=== PATIENT | male | born 1970 | race Caucasian/White ===

== ENCOUNTER 2016-06-07 10:28 | Inpatient (IN) | payer OTHER ==
[2016-06-07] VITALS (9 sets, daily range): BP systolic 108–155; BP diastolic 80–98
[~2016-06-07] VITALS: Ht 177.8 cm; Wt 81.6 kg
[~2016-06-07 10:28] MED LIST: ALBUTEROL0.09 MG/A1 INH; ATIVAN0.5 MG PO; ATIVAN1 MG PO; BACTRIM DS 8001 TAB PO; CARAFATE PO; CHLORDIAZEPOXID25 M3 PO; CILOXAN0.3% OS; FOLIC ACID 1 MG PO; FOLIC ACID1 M1 PO; KEFLEX500 MG PO; LORAZEPAM1 MG PO; MULTIVITAMIN PO; MULTIVITAMIN1 TAB PO; NEXIUM 40MG40 MG PO; NEXIUM20 M1 PO; ONE DAILY MULT1 EAC2 PO; THIAMINE HCL100 M1 PO; TRAZODONE150 MG PO; TRAZODONE50 MG PO; VITAMIN B-1100 MG PO; VITAMIN B1100 MG PO; XYLOCAINE VISCO20 ML PO; ZOFRAN 4 MG TABL4 MG PO; [UNRECOGNIZED DRUG - OTHER] PO
--- NOTE | 2016-06-07 10:47 | NUR ---
PER PT WANTS DETOX, LAST DRINK THIS AM BUT ONLY DRANK ALITTLE USUSALLY DRINK 2 PINTS. HERE AND WAS SENT HOME BECAUSE I DONT DRINK ENOUGH, ALSO DID DOPE LAST NIGHT REPORTS WITHDRAWAL SEIZURES.
--- NOTE | 2016-06-07 11:00 | NUR ---
URINE TRIO SENT BY THIS NUTRITIONIST PUBLIC [facility].
[2016-06-07 11:09] LABS: ABSOLUTE BASOPHIL COUNT 0.1 /CUMM (0.0-0.2); ABSOLUTE EOSINOPHIL COUNT 0.1 /CUMM (0.0-0.7); ABSOLUTE GRANULOCYTE CT 4.9 /CUMM (1.4-6.5); ABSOLUTE LYMPH COUNT 1.1 /CUMM (1.2-3.4); ABSOLUTE MONOCYTE COUNT 1.2 /CUMM (0.10-0.60); BASOPHIL % 0.7 % (0.0-2.0); EOSINOPHIL % 1.9 % (0-5); GRANULOCYTE % 66.2 % (42.2-75.2); HEMATOCRIT 43.2 % (42-52); MEAN CORPUSCULAR HGB 29.5 PG (27.0-31.0); MEAN CORPUSCULAR HGB CONC 33.4 G/DL (33.0-37.0); MEAN CORPUSCULAR VOLUME 88.4 FL (80.0-94.0); PLATELET COUNT 314 /CUMM (130-400); RED BLOOD CELL CT 4.89 /CUMM (4.70-6.10); WHITE BLOOD CELL COUNT 7.4 /CUMM (4.8-10.8)
--- NOTE | 2016-06-07 11:24 | NUR ---
SST HEMOLYZED PER LAB
--- NOTE | 2016-06-07 11:45 | NUR ---
SST REDRAWN AND SENT TO LAB.
--- NOTE | 2016-06-07 11:51 | NUR ---
PT REPORTS HISTORY OF W/D SEIZURES, UNSURE OF LAST ONE. SOME SHAKING NOTED TO RIGHT ARM. "LAST TIME I WAS HERE, THE DOCTOR TOLD ME THAT I COULDN'T STAY BECAUSE I DIDN'T DRINK ENOUGH. I NEED TO STAY FOR AT LEAST TWO DAYS BECAUSE I'M SCARED I'M GOING TO HAVE A SEIZURE."
--- NOTE | 2016-06-07 12:46 | NUR ---
PT SITTING UP ON STRETCHER , NOTED WITH VISIBLE TREMORS, PT STATES THAT HE HAS A HISTORY OF SEIZURES AND AT THIS TIME HE DOES NOT FEEL TO BAD, DRANK 4-5 BEERS THIS AM , BUT STATES THAT HE USUALLY DRINKS WHISKEY WITH THE BEER.CICLARY 6
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
--- NOTE | 2016-06-07 15:25 | CT SCAN REPORT ---
EXAMINATION: CT ABDOMEN AND PELVIS WITH CONTRAST CLINICAL INFORMATION: ETOH induced pancreatitis. COMPARISON: CT abdomen 12/17/2010. TECHNIQUE: Multidetector volumetric imaging was performed of the abdomen and pelvis before and after the IV administration of 95 mL of Optiray 320 intravenous contrast. Sagittal and coronal reformatted images were obtained on the technologist's workstation. DLP: 242 mGy-cm. FINDINGS: LUNG BASES: The visualized lung bases are unremarkable. Moderate hiatal hernia. LIVER, GALLBLADDER, AND BILIARY TREE: Decreased hepatic radiodensity consistent with hepatic steatosis. Top normal to mildly prominent hepatic size. No focal hepatic lesion. No biliary ductal dilatation. The gallbladder is unremarkable. PANCREAS: The pancreas enhances homogeneously. No significant peripancreatic stranding or fluid collection. No pancreatic ductal dilatation. SPLEEN: Unremarkable. ADRENAL GLANDS: Unremarkable. KIDNEYS AND URETERS: Bilateral nephrograms are symmetric without hydronephrosis. There is a subcentimeter hypodense lesion in the midpole of the right kidney which is too small to characterize on CT scan, statistically most likely representing a cyst. No suspicious renal mass. No renal or ureteral calculi demonstrated. BLADDER: Partially distended without focal abnormality. GASTROINTESTINAL TRACT: Bowel gas pattern is nonobstructive. No evidence of acute bowel inflammation. The appendix is normal. ABDOMINAL WALL: No significant hernia is appreciated. LYMPH NODES: No adenopathy demonstrated. VASCULAR: Unremarkable. PELVIC VISCERA: Unremarkable. OSSEOUS STRUCTURES: No acute osseous abnormalities. Multiple lower lumbar disc bulges. IMPRESSION: 1. No significant CT stigmata of pancreatitis demonstrated. 2. Hepatic steatosis. 3. Moderate hiatal hernia. 4. No cholelithiasis or choledocholithiasis. No biliary ductal dilatation.
--- NOTE | 2016-06-07 17:14 | NUR ---
HOUSE STAFF AT BEDSIDE FOR EVAL.
--- NOTE | 2016-06-07 17:44 | NUR ---
PT HAS BED ASSIGNMENT 230-2
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
--- NOTE | 2016-06-07 17:58 | NUR ---
REPORT GIVEN TO TRAVIS QUINONES.
--- NOTE | 2016-06-07 18:23 | NUR ---
PT MEDICATED WITH MULTIVITAMIN, FOLIC ACID AND THIAMINE AND LOVENOX SHOT. PT STABLE FOR TRANSPORT.
--- NOTE | 2016-06-07 18:30 | NUR ---
ARRIVED TO FLOOR VIA WC FROM ED. A & O X 3. TACHYCARDIC BUT OTHER VSS. C/O SWEATING AND MILD TREMOR, CIWA SCORE 5. ORIENTED TO CALL SYSTEM. BELONGINGS BAG FOR SAFE SENT WITH PATIENT, NURSING NET MAKER PAGED TO TAKE BELONGINGS TO SAFE. BAGS X 2 OF CLOTHING ALSO SENT WITH PATIENT. FALL SCORE 4 AT THIS TIME AND PT STEADY ON FEET, NO ALARM PLACED AT THIS TIME, WILL MONITOR.
--- NOTE | 2016-06-07 20:05 | Admission Certification ---
Admission Certification Certification Statement - As attending physician, I certify that at the time of - admission, based on clinical presentation, severity of - symptoms, need for further diagnostic testing and - therapeutic interventions, and risk of adverse outcomes - without in-hospital treatment, in my clinical assessment, - this patient requires an acute hospital stay for a minimum - of two nights or longer. I have also considered psychsocial - factors such as support system, advanced age, financial - issues, cognitive issues, and failed out-patient treatments, - past re-admission history, safety of patient, and lack of - compliance as applicable. Specific rationale supporting this admission is: etoh withdrawl and intoxication with impending delerium tremens.
--- NOTE | 2016-06-07 20:08 | PN- Att Addend ---
Attending MD Review Statement Attending Statement Attending MD Statement: examined this patient, discuss w/resident/PA/SENIOR FACILITIES MANAGER, agreed w/resident/PA/SENIOR FACILITIES MANAGER, reviewed EMR data (avail), discussed w/nursing Attending Assessment/Plan: Pt seen and examined at bedside. Admitted with etoh intoxication and active withdrawls. ETOH level high and utox positive for marijuana. Pt dirnks 2 pints of whiskey a day and 12 bottles of beer a day. Will check his LFTs and Ammonia level. Also has h/o hep c. monitor on ciwa and give iv fluids and banana bag
[2016-06-08] VITALS (9 sets, daily range): BP systolic 96–125; BP diastolic 70–80
--- NOTE | 2016-06-08 08:58 | PN- Housestaff ---
MARCO JACOBO 06/08/16 0852: Subjective Follow-up For: Alcohol detox Subjective: Seen and examined patient, offers no complaints. Denies fever, chills, palpitations, tremors, anxiety, nausea, vomiting, abdominal pain. Review of Systems Constitutional: Denies: chills, diaphoresis, fever, malaise, weakness, unexplained weight loss. Cardiovascular: Denies: chest pain, edema, orthopena, palpitations, peripheral edema, syncope. Respiratory: Denies: cough, hemoptysis, orthopnea, short of breath, sputum production, stridor, wheezing. Gastrointestinal: Denies: abdominal pain, bloating, constipation, diarrhea, distention, bowel incontinence, melena, nausea, bloody stool, changes in stool, vomiting, steatorrhea. Objective Last 24 Hrs of Vital Signs/I&O Vital Signs Date Time Temp Pulse Resp B/P Pulse O2 O2 Flow FiO2 Ox Delivery Rate 06/08 0728 97.8 95 16 95 Room Air 06/08 0228 97.8 95 16 95 Room Air 06/08 0200 97.8 95 20 9670 06/08 0000 96 Room Air 06/07 2226 97.9 81 20 118/80 96 Room Air 06/07 2200 97.9 81 20 118/80 06/07 1840 99.7 112 18 108/82 94 Room Air 06/07 1830 Room Air 06/07 1830 99.7 112 18 108/82 06/07 1745 97.1 109 20 134/92 06/07 1745 97.1 109 20 134/92 95 Room Air Room Air 06/07 1645 108 06/07 1645 98.8 108 18 126/87 06/07 1633 98.8 122 18 126/87 98 06/07 1445 97.9 96 20 155/96 06/07 1345 96.0 107 20 147/97 06/07 1345 96.0 107 20 147/97 96 Room Air Room Air 06/07 1245 96.9 112 06 144/98 06/07 1244 96.9 112 16 144/98 98 Room Air 06/07 1150 Room Air Room Air 06/07 1150 120/90 06/07 1048 97.2 109 22 165/100 96 Room Air Intake & Output 06/08 1600 01/16 0800 06/08 0000 Intake Total 1100 150 Output Total 525 0 Balance 575 150 Intake, IV 1000 Intake, Oral 100 150 Output, Urine 525 0 Patient 180 lb Weight Physical Exam General Appearance: Alert, Oriented X3, Cooperative, No Acute Distress Cardiovascular: Regular Rate, Normal S1, Normal S2 Lungs: bilateral wheezing Abdomen: Normal Bowel Sounds, Soft, No Tenderness Current Medications: Current Medications Sig/Trinity Start time Last Medication Dose Route Stop Time Status Admin Cyanocobalamin/ 1 BAG ONCE ONE 06/07 2359 DC 06/08 Thiamine/Pyridoxine IV 06/08 0758 0001 Sodium Chloride 1,000 ML Enoxaparin Sodium 0 .STK-MED ONE 06/07 1809 DC SC Enoxaparin Sodium 40 MG DAILY 06/07 1746 06/08 SC 0845 Folic Acid 0 .STK-MED ONE 06/07 1809 DC PO Folic Acid 1 MG DAILY 06/07 1748 AC 06/08 PO 0844 Lorazepam 2 MG Q6 06/07 1815 CAN IV Lorazepam 2 MG Q6 06/07 1810 AC 06/08 PO 0529 Lorazepam 0 Q1P PRN 06/07 1800 AC IV Lorazepam 0 .STK-MED ONE 06/07 1737 DC .ROUTE Lorazepam 2 MG Q2P PRN 06/07 1730 DC IV Lorazepam 1 MG Q2P PRN 06/07 1730 DC 06/07 IV 1755 Lorazepam 0 .STK-MED ONE 06/07 1506 DC .ROUTE Lorazepam 2 MG ONE ONE 06/07 1500 DC 06/07 IV 06/07 1501 1522 Morphine Sulfate 2 MG Q8P PRN 06/07 1800 AC IV Multivitamins 0 .STK-MED ONE 06/07 1809 DC PO Multivitamins 1 TAB DAILY 06/07 1749 06/08 PO 0845 Omeprazole 20 MG DAILY AC 06/08 0700 AC 06/08 PO 0529 Oxycodone HCl 5 MG Q8P PRN 06/07 1800 AC PO Patient Medication 1 UNIT ONE NR 06/07 181 MT Teaching ED 06/07 1830 Patient Medication 1 UNIT ONE NR 06/07 1815 MT Teaching ED 06/07 1830 Sodium Chloride 1,000 ML .[id number] 06/07 1745 AC 06/07 IV 1931 Thiamine HCl 0 .STK-MED ONE 06/07 1809 DC PO Thiamine HCl 100 MG DAILY 06/07 1749 AC 06/08 PO 0844 Last 24 Hrs of Lab/Asul Results Last 24 Hrs of Labs/Mics: Laboratory Tests 06/07/16 2350: Ammonia 14 06/07/16 1140: Anion Gap 16, Estimated GFR > 60, BUN/Creatinine Ratio 7.5, Glucose 88, Calcium 10.2, Total Bilirubin 0.7, Direct Bilirubin 0.5 H, AST 82 H, ALT 46, Alkaline Phosphatase 107, Total Protein 8.4 H, Albumin 4.8, Amylase 100, Lipase 645 H, Serum Alcohol 53.0 06/07/16 1057: Urine Opiates Screen 1380.00, Methadone Screen < 40, Barbiturate Screen < 60, Ur Phencyclidine Scrn < 6.00, Amphetamines Screen < 100, U Benzodiazepines Scrn < 85, Urine Cocaine Screen < 50, Urine Cannabis Screen > 80.00 H 06/07/16 1050: CBC w Diff MAN DIFF ORDERED, RBC 4.89, MCV 88.4, MCH 29.5, RDW 17.0 H, MPV 8.0, Gran % 66.2, Lymphocytes % 14.9 L, Monocytes % 16.3 H, Eosinophils % 1.9, Basophils % 0.7, Absolute Granulocytes 4.9, Absolute Lymphocytes 1.1 L, Absolute Monocytes 1.2 H, Absolute Eosinophils 0.1, Absolute Basophils 0.1, Platelet Estimate VERIFIED BY SMEAR, Anisocytosis 1+, Stomatocytes 1+, PUBS MCHC 33.4 Assessment/Plan Assessment: 46-year-old gentleman current smoker with past medical history significant for multiple admissions for alcohol withdrawal associated with seizures and no history of intubation, polysubstance abuse, history of hepatitis C, asthma, anxiety, depression current admission for alcohol withdrawal. No overnight issues. 1. ALCOHOL WITHDRAWAL Assessment/Plan Afebrile, no tachycardia, blood pressure running 90 over 70s will continue monitor Continue Ativan per CIWA protocol, CIWA scores 0-6, over a period of 24 hours received 6 mg by mouth Ativan and 3 mg IV Ativan. Continue start MVI/thiamine and banana bag monitor for seizures 2. GERD (gastroesophageal reflux disease) Assessment/Plan continue Prilosec 20mg Avoid NSAIDs 3. Asthma Assessment/Plan TRC/nebs Saturating 95% on room air 4. Polysubstance (excluding opioids) dependence Assessment/Plan denies IVDU 5. DVT prophylaxis Assessment/Plan sc lovenox 6. Full code status Problem List: 1. ALCOHOL WITHDRAWAL 2. GERD (gastroesophageal reflux disease) 3. Asthma Pain Ratin Pain Location: Not applicable Pain Goal: Pain 4 or less Pain Plan: Current regimen Tomorrow's Labs & Rationales: none required FEDERICO WORKMAN MD 06/08/16 1210: Attending MD Review Statement Attending Statement Attending MD Statement: examined this patient, discuss w/resident/PA/RN GYN, agreed w/resident/PA/RN GYN, reviewed EMR data (avail) Attending Assessment/Plan: 46M EtOH abuse with recurrent episodes of withdrawal and history of withdrawal seizures. Calm today, CIWA <5. Patient has a history of worsening on day 2 of admission. Will continue current Ativan dose, PRN per CIWA, may taper tomorrow if improves, continue vitamin supplementation and DVT PPx FARAZ ROTH 06/09/16 1325: Attending MD Review Statement Attending Statement Attending Assessment/Plan: I was not the attending for this patient on 06/08/16. Pt was seen by Dr Workman, his note is as above Dr Faraz Roth
[2016-06-09] VITALS (12 sets, daily range): BP systolic 104–130; BP diastolic 70–80
--- NOTE | 2016-06-09 07:28 | PN- Housestaff ---
ADIA BERRIOS MD 06/09/16 0727: Subjective Follow-up For: EtOH detox Subjective: Patient seen and examined. He is seen lying flat in bed resting comfortably. He appears to be in no acute distress. He reports sleeping well last night and at this time has no complaints. Otherwise he denies any headache, fever, chills, chest pain, palpitations, shortness of breath, nausea, vomiting, diarrhea. No overnight events reported. Review of Systems Constitutional: Reports: see HPI. Objective Last 24 Hrs of Vital Signs/I&O Vital Signs Date Time Temp Pulse Resp B/P Pulse O2 O2 Flow FiO2 Ox Delivery Rate 06/09 1434 98.2 98 20 125/80 98 06/09 0916 97 Room Air 06/09 0800 97.6 88 16 104/76 06/09 0800 96 Room Air 06/09 0712 97.6 88 16 10476 96 Room Air 06/09 0400 97.5 64 16 108/76 06/09 0205 97.5 64 16 108/76 96 Room Air 06/09 0200 97.5 64 16 108/76 06/09 0000 97.9 70 20 120/80 06/09 0000 97 Room Air 06/08 2027 97.9 70 20 120/80 97 Room Air 06/08 2000 97.9 70 20 120/80 06/08 1928 94 Room Air Room Air Intake & Output 06/09 1600 06/09 0800 06/09 0000 Intake Total 975 506 5764 Output Total 1400 1100 Balance 900 -675 470 Intake, IV 300 600 600 Intake, Oral 600 125 970 Output, Urine 1400 1100 Physical Exam General Appearance: Alert, Oriented X3, Cooperative, No Acute Distress Other Physical Findings: General -well-developed, well-nourished middle-aged man in no acute distress HEENT - NCAT, PERRL, EOMI, anicteric sclera Cardio - S1, S2 w/o murmurs/gallops/rubs Resp - CTA bilaterally w/o wheezing/rhochi/crackles GI - soft, nontender, nondistended, bowel sounds present Neuro - Awake and alert, CN II - XII grossly intact Extremities - no edema, pulses intact Current Medications: Current Medications Sig/Trinity Start time Last Medication Dose Route Stop Time Status Admin Albuterol Sulfate 3 ML BID 06/08 2199 AC 06/09 INH 0914 Enoxaparin Sodium 40 MG DAILY 06/07 1746 AC 06/09 SC 0922 Folic Acid 1 MG DAILY 06/07 1748 AC 06/09 PO 0922 Lorazepam 1 MG Q6 06/09 1200 AC 06/09 PO 1151 Lorazepam 1.5 MG Q6 06/08 1200 DC 06/09 PO 0546 Lorazepam 0 Q1P PRN 06/07 1800 AC IV Morphine Sulfate 2 MG Q8P PRN 06/07 1800 AC IV Multivitamins 1 TAB DAILY 06/07 1749 AC 06/09 PO 0922 Nicotine 21 MG DAILY 06/08 1627 AC 06/09 TOP 0922 Omeprazole 20 MG DAILY AC 06/08 0700 AC 06/09 PO 0546 Oxycodone HCl 5 MG Q8P PRN 06/07 1800 AC PO Sodium Chloride 1,000 ML .[id number] 06/07 1745 DC 06/08 IV 2320 Thiamine HCl 100 MG DAILY 06/07 1749 AC 06/09 PO 0922 Trazodone HCl 50 MG ONCE ONE 06/08 2330 DC 06/08 PO 06/08 2331 2339 Assessment/Plan Assessment: Patient continues to feel well and has no complaints. He is tolerating his Ativan taper well and has scored consistently low on his CIWA protocol. He has not required any supplemental Ativan thus far. His Ativan taper will continue to be tapered with an anticipated discharge date to home without any further taper this coming . EtOH abuse/dependence: History of EtOH abuse/dependence and alcohol withdrawal seizures presented requesting alcohol detox. -Seizure precautions -CIWA protocol and Ativan when necessary -Ativan taper -Multivitamin/thiamine/folate -Psych consult GERD-stable, continue omeprazole 20 mg by mouth daily Every day smoker-nicotine 21 mg patch daily History of asthma-stable, continue albuterol inhalation twice a day Pain plan: -Oxycodone 5 mg by mouth every 8 hours as needed for pain 4-6 -Morphine 2 mg IV every 8 hours as needed for pain 7-10 Diet-regular diet DVT prophylaxis-Lovenox CODE STATUS-full code Problem List: 1. ALCOHOL WITHDRAWAL Pain Ratin Pain Location: None Pain Goal: Remain pain free Pain Plan: As noted in plan Tomorrow's Labs & Rationales: None FEDERICO WORKMAN MD 06/09/16 1103: Attending MD Review Statement Attending Statement Attending MD Statement: examined this patient, discuss w/resident/PA/SOLAR SALES ENERGY ADVISOR, agreed w/resident/PA/SOLAR SALES ENERGY ADVISOR, reviewed EMR data (avail) Attending Assessment/Plan: 46M EtOH abuse with recurrent episodes of withdrawal and history of withdrawal seizures. Calm today, CIWA <5. May taper Ativan to 1mg q6h with plans to taper to 1mg q12h tomorrow if CIWA scores remain controlled, PRN per CIWA, continue vitamin supplementation
--- NOTE | 2016-06-09 12:48 | NUR ---
Referral received yesterday via electronic border patrol agent. This patient is a 46 year old man, admitted to the hospital on 06/07/16 seeking a voluntary detox. Gonzalo is well known to this communications writer from multiple previous admissions, which have frequently resulted in either AMA discharges or reluctance/rfusal to allow assistance with formulation of an aftercare plan. About 11/2 years ago, patient did got to residential rehab via his [employer] benefit, but struggled then with sustained sobriety. Today I met with Gonzalo. He is on anativan taper with projected discharge tomorrow and all gonzalo will consider is discharge home with AA.
--- NOTE | 2016-06-09 13:49 | NUR ---
ALL VAULUABLES RETRIEVED FROM [facility]E PER PT REQUEST, PT SIGNED FOR CORRECT COUNT, PHONE, WALLET, ETC, LABORATORY CUREMAN AND CIGARETTS NOT RETURNED TO PT, PT AWARE HE WILL GET THEM BACK AT DISCHARGE
--- NOTE | 2016-06-09 15:17 | Cons- Psychiatry ---
Psychiatric Consult Date of Consult: 06/09/16 Reason for Consult: "Hx anxiety/depression, etoh dep, discharge recs." History of Present Illness: HPI: 46-year-old male known to this service presents for alcohol detox on 06/07/16 admitted with severe epigastric pain. Patient has a long history of alcohol use disorder with several previous detoxes. At present consumes 2 quarts of whiskey plus "a couple beers" daily. PMH: Please see the H&P for a complete listing hepatitis C, asthma Past Psych History: -Outpatient Denies -Inpatient Denies Family Psych History: Unobtained Substance History History of polysubstance abuse dating back to age 14. Cocaine, marijuana, and alcohol are primary substances. -Treatment 2 previous [facility] Dual dx IOP admits in 2013 and 2014 Multiple rehab stays including [facility], [facility], and [facility] - first at age 16, after which he maintained 3 years of sobriety Multiple inpatient detoxes Family Substance History: Father EtOH Social: . Recent intact family, mother and stepfather, with 2 brothers. 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 Has GED is currently unemployed. Abuse/Trauma: Denies Current Home Psychotropic Medications: Most recently prescribed in October by Michelle LO Lexapro 10 mg daily Trazodone 150 mg daily at bedtime Current Hospital Psychotropic Medications: Med Lorazepam IV Q1P PRN 06/07/16 1800 Lorazepam 1 MG PO Q6 06/09/16 1200 Allergies: Coded Allergies: NO KNOWN ALLERGIES (12/30/15) Past History Past Medical History Neurological: seizure, (WITHDRAWAL SEIZURES) EENT: NONE Cardiovascular: NONE Respiratory: asthma Gastrointestinal: GERD Hepatic: hepatitis C, ELEVATED LFT'S Renal: NONE Musculoskeletal: chronic back pain Psychiatric: alcohol dependence, insomnia Endocrine: NONE Blood Disorders: HEPATITIS C Cancer(s): NONE FRUIT PICKER/Reproductive: NONE Past Surgical History Surgical History: hernia repair-umbilical, SKIN GRAFT S/P BURN Psychosocial History Strengths/Capabilities: Able to ask for help when needed, open-minded to the idea of detox Physical Limitations (Interventions): None Psychiatric Treatment History Psych Treatment Psychiatric Treatment Yes Inpatient Treatment No Outpatient Treatment Yes Diagnosis: Alcohol use disorder, Severe; Cocaine use disorder, Moderate; Cannabis use disorder, Moderate; Risk Factors: access to lethal means, high anxiety/distress, SA/MH hospitalized, substance abuse, lives alone, male, limited support Substance Use/Abuse History Drug Use/Abuse Substances Used/Abused Yes Substance Abuse Treatment Substance Abuse Treatment Past Substance Abuse [place] Yes [facility]patient [facility] ([facility] Outpatient Treatment Yes ([facility]) Assessment/Plan Mental Status Orientation: Person, Place, Situation Affect: WNL Speech: WNL Neuro-vegetative: WNL Mental Status Exam: Presentation/Appearance: Cooperative with evaluation. Hospital garb. Bearded. Interviewed in bed. Orientation: Oriented 4 Sensorium: Awake and alert Eye contact: Appropriate Affect: Full range congruent with stated mood Mood: "A lot better now" Depression: Denies, states "I was very depressed until I got here now I feel better" Anxiety: Denies Thought Content: - Denies SI/HI, AH/VH, PI. States and also believes they will not kill themselves. - Denies Hopeless/Helpless Thoughts Thought Process: Linear and goal-directed Speech: Normal tone and rate and rhythm Judgment: Fair Insight: Fair Cognition: Memory: Grossly intact Attention/Concentration: Grossly intact, able spell world forwards and backwards Patient reports he does not currently have insurance and therefore would not like to pursue outpatient psychiatric or dual diagnosis treatment. He does say he plans to return to and does have a sponsor. He reports he is treatment motivated right now because his daughter has been having serious thyroid issues and she needs help with her care. Lab Results: Laboratory Tests 06/07/16 2350: Ammonia 14 06/07/16 1140: Anion Gap 16, Estimated GFR > 60, BUN/Creatinine Ratio 7.5, Glucose 88, Calcium 10.2, Total Bilirubin 0.7, Direct Bilirubin 0.5 H, AST 82 H, ALT 46, Alkaline Phosphatase 107, Total Protein 8.4 H, Albumin 4.8, Amylase 100, Lipase 645 H, Serum Alcohol 53.0 06/07/16 1057: Urine Opiates Screen 1380.00, Methadone Screen < 40, Barbiturate Screen < 60, Ur Phencyclidine Scrn < 6.00, Amphetamines Screen < 100, U Benzodiazepines Scrn < 85, Urine Cocaine Screen < 50, Urine Cannabis Screen > 80.00 H 06/07/16 1050: CBC w Diff MAN DIFF ORDERED, RBC 4.89, MCV 88.4, MCH 29.5, RDW 17.0 H, MPV 8.0, Gran % 66.2, Lymphocytes % 14.9 L, Monocytes % 16.3 H, Eosinophils % 1.9, Basophils % 0.7, Absolute Granulocytes 4.9, Absolute Lymphocytes 1.1 L, Absolute Monocytes 1.2 H, Absolute Eosinophils 0.1, Absolute Basophils 0.1, Platelet Estimate VERIFIED BY SMEAR, Anisocytosis 1+, Stomatocytes 1+, PUBS MCHC 33.4 Diffential Diagnosis: Alcohol use disorder, Severe Cocaine use disorder, Moderate Cannabis use disorder, Moderate r/o unspecified mood disorder Impression: 46-year-old male with a long history of polysubstance abuse presents for alcohol detox. At this time he is not a threat to self or others. He declines ongoing psychiatric care but may benefit from a dual diagnosis IOP or seeing a substance abuse counselor on a regular basis. Provisional Treatment Plan: 1. Patient to follow-up with Alcoholics Anonymous, declines outpatient psychiatric care at this time. 2. Please continue to follow CIWA protocol and medicate appropriately including vitamin supplementation. Thank you for including psychiatry in this case we will be signing off. Reconsult as necessary. Gwyn Cancino APRN, pager [phone]
--- NOTE | 2016-06-09 20:00 | NUR ---
ALERT AND ORIENTED X 3. VITAL SIGNS STABLE. ON ROOM AIR. NO DISCOMFORT NOTED. CIWA SCORE OF ZERO. PATIENT RESTING COMFORTABLY AT THIS TIME. WILL CONTINUE TO MONITOR
[2016-06-10 02:00] VITALS: BP 116/70
[2016-06-10 02:43] VITALS: BP 116/70
[2016-06-10 06:00] VITALS: BP 118/68
[2016-06-10 07:00] VITALS: BP 118/68
[2016-06-10 08:00] VITALS: BP 118/68
--- NOTE | 2016-06-10 09:51 | PN- Housestaff ---
YASH AUGUSTIN,ADIA 06/10/16 0951: Subjective Follow-up For: Alcohol detox Subjective: Patient seen and examined. He is seen lying flat in bed resting comfortably. He appears to be in no acute distress. He reports not sleeping well last night, only sleeping 20 minutes at a time but otherwise has no complaints. Additionally he denies any headache, fever, chills, chest pain, shortness of breath, nausea, vomiting, diarrhea. No overnight events reported. Review of Systems Constitutional: Reports: see HPI. Objective Last 24 Hrs of Vital Signs/I&O Vital Signs Date Time Temp Pulse Resp B/P Pulse O2 O2 Flow FiO2 Ox Delivery Rate 06/10 1148 98 Room Air 06/10 0800 98.3 96 19 118/68 06/10 0700 98.3 96 19 97 Room Air 06/10 0600 98.3 96 19 118/68 06/10 0243 98.3 92 20 116/70 97 Room Air 06/10 0200 98.3 92 20 116/70 06/09 2209 98.2 99 20 130/70 96 06/09 2200 98.2 99 20 130/70 06/09 2057 98 Room Air 06/09 2000 98.5 84 18 130/80 06/09 1800 98.5 84 18 130/80 Intake & Output 06/10 1600 06/10 0800 06/10 0000 Intake Total 600 250 700 Output Total Balance 600 250 700 Intake, IV 10 Intake, Oral 600 240 700 Physical Exam General Appearance: Alert, Oriented X3, Cooperative, No Acute Distress Other Physical Findings: General -well-developed, well-nourished middle age male in no acute distress HEENT - NCAT, PERRL, EOMI, anicteric sclera Cardio - S1, S2 w/o murmurs/gallops/rubs Resp - CTA bilaterally w/o wheezing/rhochi/crackles GI - soft, nontender, nondistended, bowel sounds present Neuro - Awake and alert, CN II - XII grossly intact Extremities - no edema, pulses intact Current Medications: Current Medications Sig/Trinity Start time Last Medication Dose Route Stop Time Status Admin Albuterol Sulfate 3 ML BID 06/08 2200 DCD 06/10 INH 1145 Benzonatate 100 MG ONCE ONE 06/10 0400 DC 06/10 PO 06/10 0401 0354 Enoxaparin Sodium 40 MG DAILY 06/07 1746 DCD 06/10 SC 0949 Folic Acid 1 MG DAILY 06/07 1748 DCD 06/10 PO 0949 Lorazepam 1 MG Q8 06/10 1400 DCD PO Lorazepam 1 MG Q6 06/09 1200 DC 06/10 PO 0558 Lorazepam 0 Q1P PRN 06/07 1800 DCD IV Melatonin 5 MG ONCE ONE 06/09 2115 DC 06/09 PO 06/09 2116 2335 Morphine Sulfate 2 MG Q8P PRN 06/07 1800 DCD IV Multivitamins 1 TAB DAILY 06/07 1749 DCD 06/10 PO 0949 Nicotine 21 MG DAILY 06/08 1627 DCD 06/10 TOP 0949 Omeprazole 20 MG DAILY AC 06/08 0700 DCD 06/10 PO 0558 Oxycodone HCl 5 MG Q8P PRN 06/07 1800 DCD PO Patient Medication 1 ED .STK-MED ONE 06/10 1411 DC Teaching ED 06/10 1412 Thiamine HCl 100 MG DAILY 06/07 1749 DCD 06/10 PO 0949 Assessment/Plan Assessment: Patient continues to feel well today and has no complaints other than not sleeping well last night. She was scoring overnight was 0-2 requiring no additional Ativan for agitation. He is to be discharged to home today with 3 tablets of Ativan for the remainder of his taper. He was instructed to avoid alcohol and to follow up with his appointment at his primary care provider's office and with Alcoholics Anonymous as set up by psychiatry. EtOH abuse/dependence: History of EtOH abuse/dependence and alcohol withdrawal seizures presented requesting alcohol detox. -Seizure precautions -CIWA protocol and Ativan when necessary -Ativan taper -Multivitamin/thiamine/folate -Psych consult GERD-stable, continue omeprazole 20 mg by mouth daily Every day smoker-nicotine 21 mg patch daily History of asthma-stable, continue albuterol inhalation twice a day Pain plan: -Oxycodone 5 mg by mouth every 8 hours as needed for pain 4-6 -Morphine 2 mg IV every 8 hours as needed for pain 7-10 Diet-regular diet DVT prophylaxis-Lovenox CODE STATUS-full code Problem List: 1. ALCOHOL WITHDRAWAL Pain Ratin Pain Location: None Pain Goal: Remain pain free Pain Plan: As noted in plan Tomorrow's Labs & Rationales: None FEDERICO WORKMAN MD 06/12/16 1256: Attending MD Review Statement Attending Statement Attending MD Statement: examined this patient, discuss w/resident/PA/CELLULOSE INSULATION HELPER, agreed w/resident/PA/CELLULOSE INSULATION HELPER, reviewed EMR data (avail)
[2016-06-10] MEDS ORDERED: ATIVAN1 M1 PO ×2 (10:33→10:55)
--- NOTE | 2016-06-10 10:36 | Patient Discharge Instructions ---
Discharge Instructions General Discharge Information Special Instructions: Take one tablet of ativan tonight. Take one tablet of ativan tomorrow morning. Take one tablet of ativan tomorrow night. Follow up with your primary care provider after discharge. Follow up with Alcoholics Anonymous. Consider outpatient evaluation with a psychiatrist. Acute Coronary Syndrome Inclusion Criteria At DC or during hospital stay patient has or had the following: ACS DIAGNOSIS No Discharge Core Measures Meds if any: Prescribed or Continued at Discharge Meds if any: NOT Prescribed or Continued at Discharge Congestive Heart Failure Inclusion Criteria At DC or during hospital stay patient has or had the following: CHF DIAGNOSIS No Discharge Core Measures Meds if any: Prescribed or Continued at Discharge Meds if any: NOT Prescribed or Continued at Discharge Cerebrovascular accident Inclusion Criteria At DC or during hospital stay patient has or had the following: CVA/TIA Diagnosis No Discharge Core Measures Meds if any: Prescribed or Continued at Discharge Meds if any: NOT Prescribed or Continued at Discharge Venous thromboembolism Inclusion Criteria VTE Diagnosis No VTE Type NONE VTE Confirmed by (Test) NONE Discharge Core Measures - Per Current guidelines, there needs to be overlap - treatment for the first 5 days of Warfarin therapy. - If discharged on Warfarin prior to 5 days of - overlap therapy, the patient will need to be - assessed for post discharge needs including - *Post discharge parental anticoagulation - *Warfarin and/or parental anticoagulation education - *Follow up date to check INR post discharge At least 5 days overlap therapy as Inpatient No Meds if any: Prescribed or Continued at Discharge Note: Overlap Therapy is Warfarin and Anticoagulant Meds if any: NOT Prescribed or Continued at Discharge
--- NOTE | 2016-06-10 16:11 | Discharge Summary ---
Visit Information Visit Dates Admission Date: 06/07/16 Discharge Date: 06/10/16 Hospital Course Course Attending Physician: FEDERICO WORKMAN MD Primary Care Physician: LARISSA GONZALEZ Consulting Request: Consulting Specialty: Psychiatry Hospital Course: 46 year old man requesting alcohol detox. He has multiple admissions for associated with withdrawal seizures and no history of intubation or requiring ICU admission/ativan drip. He reports after discharge from the last hospitalization he attended alcoholic annonymous meetings PMHx: EtOH abuse/dependence/withdrawal seizures, Polysubstance abuse, Hepatitis C, Asthma, Anxiety EtOH abuse/dependence: History of EtOH abuse/dependence and alcohol withdrawal seizures presented requesting alcohol detox. Patient was given information regarding alcoholics annonymous and encouraged to attend meetings. He was started on multivitamin/ thiamine/folate supplementation in addition to a scheduled ativan taper and CIWA protocol PRN ativan. Psych networks computer consultant made no specific other recommendations different from medical management. He was maintained on an ativan scheduled taper and required no additional PRN ativan for agitation. He was discharged to home with the remainder of his ativan taper with instruction to follow up with he primary care provider and alcoholics annonymous after discharge and to abstain from drinking. Allergies: Coded Allergies: NO KNOWN ALLERGIES (12/30/15) Significant Procedures: SERVICE DATE: 06/07/16 EXAM TYPE: CAT - CT ABD & PELVIS W IV CONTRAST IMPRESSION: 1. No significant CT stigmata of pancreatitis demonstrated. 2. Hepatic steatosis. 3. Moderate hiatal hernia. 4. No cholelithiasis or choledocholithiasis. No biliary ductal dilatation. Disposition Summary Disposition Principal Diagnosis: Alcohol Detox Additional Diagnosis: None Discharge Disposition: home or self care Discharge Instructions General Discharge Information Code Status: Full Code Patient's Diet: Regular Diet Patient's Activity: Return to full activity as tolerated Follow-Up Instructions/Appts: Take one tablet of ativan tonight. Take one tablet of ativan tomorrow morning. Take one tablet of ativan tomorrow night. Follow up with your primary care provider after discharge. Follow up with Alcoholics Anonymous. Consider outpatient evaluation with a psychiatrist. Medications at Discharge Discharge Medications: Continue taking these medications: Esomeprazole Magnesium (Nexium) 20 MG CAPSULE.DR 1 Capsule ORAL DAILY Comments: Last Taken:06/10/16 ( PRILOSEC GIVEN IN HOSPITAL ) Time:0600 Start taking the following new medications: Lorazepam (Ativan) 1 MG TABLET 1 Milligram ORAL TAPER Qty = 3 No Refills Instructions: TAKE ONE TABLET TONIGHT. (06/10/16) TAKE ONE TABLET TOMORROW MORNING AND ONE TABLET TOMORROW NIGHT (06/11/16) Comments: Last Taken:06/10/16 Time: 0600 Copies To: LARISSA GONZALEZ
== END 2016-06-10 13:00 | DRG 897 ==
LOC: ENRESERVDT → ENRESERVTM → ERH 10:28 → 2NA 16:03 → ENPENDDIS 16:03 → ERHI 16:03 → 2NA 18:25
PROVIDERS: Emergency Medicine; ADMIT Internal Medicine
DX: F10.239 Alcohol dependence with withdrawal, unspecified (principal); F14.90 Cocaine use, unspecified, uncomplicated; R56.9 Unspecified convulsions; F17.200 Nicotine dependence, unspecified, uncomplicated; J45.909 Unspecified asthma, uncomplicated; F41.9 Anxiety disorder, unspecified; F32.9 Major depressive disorder, single episode, unspecified; B18.2 Chronic viral hepatitis C; Z86.73 Personal history of transient ischemic attack (TIA), and cerebral infarction without residual deficits
CPT/HCPCS: 2NASP; 36415; 74177; 80307; 96374; 99233; G0480; J1650; J3490

== ENCOUNTER 2016-06-21 04:24 | Emergency (ER) | payer OTHER ==
[~2016-06-21] VITALS: Ht 172.7 cm; Wt 68.9 kg
[~2016-06-21 04:24] MED LIST changes: +ATIVAN1 M1 PO
[2016-06-21 04:35] VITALS: BP 131/79
[2016-06-21] MEDS ORDERED: POLYTRIM EYE DR10 ML OPH (04:55)
[2016-06-21] MEDS ORDERED: PROAIR HFA8.5 GM INH (04:55)
[2016-06-21] MEDS ORDERED: MEDROL4 M2 PO (04:55)
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
== END 2016-06-21 05:30 ==
LOC: ERH 04:24
DX: T15.01XA Foreign body in cornea, right eye, initial encounter (principal); J44.1 Chronic obstructive pulmonary disease with (acute) exacerbation; Z72.0 Tobacco use
CPT/HCPCS: 1263; 90471; 90714

== ENCOUNTER 2016-09-20 07:24 | Inpatient (IN) | payer OTHER ==
[2016-09-20] VITALS (8 sets, daily range): BP systolic 112–148; BP diastolic 63–93
[~2016-09-20] VITALS: Ht 177.8 cm; Wt 68.0 kg
[~2016-09-20 07:24] MED LIST changes: +MEDROL4 M2 PO; +POLYTRIM EYE DR10 ML OPH; +PROAIR HFA8.5 GM INH
--- NOTE | 2016-09-20 07:26 | NUR ---
PT STATES TO SOCIAL WORK THERAPIST COCAINE AND HEROIN USE
--- NOTE | 2016-09-20 07:29 | NUR ---
PT TO ED REQUESTING ETOH DETOX. 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 PT DRINKS A "COUPLE PINTS OF WHISKEY" AND A "COUPLE BEERS A DAY". ADMITS TO COCAINE USE LAST NIGHT. DENIES SI/HI. STATES SEIZURES WITH ETOH DETOX. PT TAKEN TO ROOM 3, SECURITY CALLED FOR WANDING.
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
--- NOTE | 2016-09-20 07:50 | NUR ---
IV EST. PT MEDICATED WITH 4MG IV ZOFRAN AT THIS TIME, NS INFUSING PER ORDER.
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
[2016-09-20 07:58] LABS: ABSOLUTE BASOPHIL COUNT 0.1 /CUMM (0.0-0.2); ABSOLUTE EOSINOPHIL COUNT 0 /CUMM (0.0-0.7); ABSOLUTE GRANULOCYTE CT 12.2 /CUMM (1.4-6.5); ABSOLUTE LYMPH COUNT 1.3 /CUMM (1.2-3.4); ABSOLUTE MONOCYTE COUNT 0.9 /CUMM (0.10-0.60); BASOPHIL % 0.6 % (0.0-2.0); EOSINOPHIL % 0.2 % (0-5); GRANULOCYTE % 83.6 % (42.2-75.2); HEMATOCRIT 45.5 % (42-52); MEAN CORPUSCULAR HGB 29.8 PG (27.0-31.0); MEAN CORPUSCULAR HGB CONC 33.1 G/DL (33.0-37.0); MEAN CORPUSCULAR VOLUME 90.1 FL (80.0-94.0); MEAN PLATELET VOLUME 7.5 FL (7.4-10.4); PLATELET COUNT 445 /CUMM (130-400); RBC DISTRIBUTION WIDTH 17.3 % (11.5-14.5); RED BLOOD CELL CT 5.05 /CUMM (4.70-6.10); WHITE BLOOD CELL COUNT 14.6 /CUMM (4.8-10.8)
--- NOTE | 2016-09-20 08:15 | NUR ---
SST REDRAWN AT THIS TIME
[2016-09-20] MEDS ORDERED: TRAZODONE HCL150 M1 PO (08:39)
--- NOTE | 2016-09-20 10:00 | NUR ---
BANANA BAG INFUSION COMPLETE. PT RESTING COMFORTABLY ON STRETCHER NO APPARENT DISTRESS NOTED.
--- NOTE | 2016-09-20 11:16 | NUR ---
FINGER FOOD TRAY ORDERED.
--- NOTE | 2016-09-20 11:41 | NUR ---
PT BEGAN TO DRY HEAVE. NO VOMIT PRODUCED. PT MEDICATED WITH ZOFRAN 4MG IVP
--- NOTE | 2016-09-20 12:51 | NUR ---
PT MEDICATED WITH ATIVAN 2MG IVP FOR CIWA OF 13
--- NOTE | 2016-09-20 14:47 | NUR ---
PT MEDICATED WITH ATIVAN 2MG PO AND LOVENOX 40MG SC TO L ABD
--- NOTE | 2016-09-20 15:00 | NUR ---
VITAMIN B-1 500MG/100ML STARTED AT 100ML/HR
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
--- NOTE | 2016-09-20 15:26 | NUR ---
PT HAS BED ASSIGNMENT 230-1
--- NOTE | 2016-09-20 16:14 | NUR ---
REPORT CALLED TO GRANT QUINONES. DISTRIBUTION CALLED FOR TRANSPORT
--- NOTE | 2016-09-20 16:29 | NUR ---
PT MEDICATED WITH ATIVAN 1MG IVP PER CIWA. PT TRANSPORTED TO FLOOR VIA WHEELCHAIR. 1 BELONGINGS BAG TO FLOOR WITH PT AND DISTRUBITION
--- NOTE | 2016-09-20 16:30 | NUR ---
PT ARRIVED TO FLOOR AT 1630 VIA WHEELCHAIR FROM ER. PT ASSISTED TO BED BY AMBULATION, STEADY GAIT. PT A/V/OX3. ON RA, HX OF ASTHMA & COPD. WHEEZES NOTED THROUGHOUT LUNGS. SKIN INTACT. DENIES ANY PAIN. PT MEDICATED BEFORE ARRIVAL WITH IV ATIVAN. CALM & COOPERATIVE. IV #20 LFA FLUSHING EASILY. HEP LOCKED AFTER PRIOR INFUSION. NO HX OF FALLS. INSTRUCTED TO USE CALL HOFFMAN. ORIENTED TO ROOM, CALL HOFFMAN, & SURROUNDINGS. WILL CONTINUE TO MONITOR.
--- NOTE | 2016-09-20 16:31 | NUR ---
BIANCA QUINONES INFORMED OF CIWA AND MEDICATION ADMIN
[2016-09-21] VITALS (7 sets, daily range): BP systolic 110–140; BP diastolic 60–84
--- NOTE | 2016-09-21 07:07 | PN- Housestaff ---
YASH AUGUSTIN,ADIA 09/21/16 0706: Subjective Follow-up For: EtOH Abuse/Withdrawal/Dependence Subjective: Patient seen and examined. He is seen lying flat in bed resting comfortably. He appears to be in no acute distress. He reports sleeping well last night and has no new subjective complaints. Otherwise he denies any fever, chills, chest pain, shortness of breath, nausea, vomiting, diarrhea. No overnight events reported. Review of Systems Constitutional: Reports: see HPI. Objective Last 24 Hrs of Vital Signs/I&O Vital Signs Date Time Temp Pulse Resp B/P B/P Pulse O2 O2 Flow FiO2 Mean Ox Delivery Rate 09/21 1600 97.8 89 16 138/84 09/21 1416 98.2 77 20 120/68 97 09/21 1110 98.8 91 20 140/82 100 09/21 1104 Room Air Room Air 09/21 0737 98.2 83 20 110/70 93 Room Air 09/21 0100 98.9 61 20 120/68 99 Room Air 09/21 0000 Room Air 09/20 2115 97.7 95 20 112/90 96 Intake & Output 09/21 1600 09/21 0800 09/21 0000 Intake Total 1250 170 230 Output Total 950 Balance 300 170 230 Intake, IV 200 120 130 Intake, Oral 1050 50 100 Number 0 Bowel Movements Output, Urine 950 Patient 68.039 kg Weight Physical Exam General Appearance: Alert, Oriented X3, Cooperative, No Acute Distress Other Physical Findings: General- well developed, well nourished middle aged man in no acute distress HEENT- NCAT, PERRL, EOMI, anicteric sclera CVS- S1, S2 w/o m/g/r Resp- CTA bilaterally GI- Soft, nontender, nondistended, bowel sounds intact Neuro- Awake and alert, CN II - XII grossly intact, mild tremor Ext- normal pulses, no cyanosis/clubbing/edema Current Medications: Current Medications Sig/Trinity Start time Last Medication Dose Route Stop Time Status Admin Albuterol Sulfate 3 ML BID 09/21 2200 AC 09/21 INH 1928 Albuterol Sulfate 3 ML Q4P PRN 09/21 1030 DC 09/21 INH 1058 Cyanocobalamin 250 MCG DAILY 09/21 1000 AC 09/21 PO 0854 Enoxaparin Sodium 40 MG DAILY 09/20 1312 AC 09/21 SC 0854 Folic Acid 1 MG DAILY 09/20 1315 AC PO Lorazepam 2 MG Q6H 09/20 2045 AC 09/21 PO 1445 Lorazepam 0 Q1P PRN 09/20 1315 AC 09/20 IV 1625 Multivitamins 1 TAB DAILY 09/20 1312 AC 09/21 PO 0854 Ondansetron HCl 4 MG Q6-PRN PRN 09/20 1500 AC PO Sodium Chloride 1,000 ML Q10H 09/21 1030 AC 09/21 IV 1132 Thiamine HCl 500 MG Q8 09/20 1400 AC 09/21 Sodium Chloride 100 ML IV 1447 Trazodone HCl 150 MG AT BEDTIME PRN 09/20 1330 AC PO Last 24 Hrs of Lab/Saul Results Last 24 Hrs of Labs/Mics: Laboratory Tests 09/21/16 1623: Urine Color Cancelled, Urine Clarity Cancelled, Urine pH Cancelled, Ur Specific [place] Cancelled, Urine Protein Cancelled, Urine Ketones Cancelled, Urine Nitrite Cancelled, Urine Bilirubin Cancelled, Urine Urobilinogen Cancelled, Ur Leukocyte Esterase Cancelled, Ur Microscopic Cancelled, Urine Hemoglobin Cancelled, Urine Glucose Cancelled 09/21/16 0629: Anion Gap 13, Estimated GFR > 60, BUN/Creatinine Ratio 12.2, Magnesium 2.0 Assessment/Plan Assessment: Patient continues to demonstrate signs of active alcohol withdrawal. CIWA scores overnight range 0-11 requring one additional dose of ativan. Today he is resting comfortably and has no new subjective complaints. He is to be continued on the ativan taper. EtOH Abuse/Withdrawal/Dependence/Polysubstance Abuse Patient with a history of etoh related illness including withdrawal seizures and multiple admissions for EtOH related complaints and polysubstance abuse seen for evaluation of alcohol intoxication. Vital signs upon initial evaluation were within normal limits. Physical examination demonstrated tremulousness and was otherwise normal. WBC 14.6, Hgb/Hct 15.1/45.5. Urine toxicology was positive for opiates, cocaine, and canabis; serum alcohol level was 155. Given patients extensive documented medical history of alcohol related disease and multiple admissions patient more likely than not is experiencing alcohol intoxication with eventual related sequelae of withdrawal. -General Medicine -CIWA protocol -NS @ 100mL/hr -Ativan PRN per CIWA -Ativan 2mg PO Q6H -Zofran 4mg PO Q6H PRN nausea -Thiamine 500mg IV Q8H -Thiamine/Folate/Multivitamin -Psych consult Pain Plain- Diet-Regular Diet DVT PPx-Lovenox Code Status-FULL CODE Problem List: 1. Alcohol intoxication Pain Ratin Pain Location: None Pain Goal: Remain pain free Pain Plan: See assessment Tomorrow's Labs & Rationales: None LELAND FRASER [id number] 09/21/16 1301: Attending MD Review Statement Attending Statement Attending MD Statement: examined this patient, discuss w/resident/PA/PIANO REFINISHER, agreed w/resident/PA/PIANO REFINISHER, reviewed EMR data (avail), discussed with nursing, discussed with case mgmt, amended to note Attending Assessment/Plan: Patient seen and examined. Lying in bed not in acute distress. Nursing staff does not report any significant events overnight. His CIWA overnight was as high as 11. On examination he is alert and oriented 3. He does report mild anxiety. He also has mild tremors. On auscultation he has diffuse wheezing bilaterally. He admits since active cigarette use. Recommendations: -Patient appears to still be in the acute phases of alcohol withdrawal. Continue current CIWA protocol without tapering his benzodiazepine regimen for now. -Initiate IV fluids to keep patient well hydrated. -Monitor serum electrolytes every 48 hours to ensure his potassium and magnesium levels are stable. -His leukocytosis is likely reactive. Repeat CBCs and 48 hours. -Patient did have a low-grade fever that may be secondary to his withdrawal state. We'll monitor closely. If he does spike fever again will obtain emmanuel culture.
--- NOTE | 2016-09-21 15:28 | NUR ---
Referral received this am via electronic sales order coordinator. This patient is a 46 year old man, admitted to the hospital yesterday with ETOH Withdrawal. Patient is known to this narrative writer from multiple previous admissions. Gonzalo was placed on the CIWA for observation of withdrawal symptoms; scoring for tremors and sweats and has received 9mg ativan in 24hours. Attempted to see patient who was soundly sleeping. Follow to better assess aftercare needs.
--- NOTE | 2016-09-21 16:38 | Cons- Psychiatry ---
Psychiatric Consult Date of Consult: 09/21/16 Reason for Consult: "Polysubstance abuse, ETOH abuse." History of Present Illness: Identifying Info: 46-year-old male known to this service presents presents to [facility] emergency department on 09/20/2016 requesting EtOH detox. He has a history of seizure and is motivated to medicine. CC: "tired" HPI: Post detox in May of this year the patient maintained sobriety for a full 2 months. States he accomplish this by attending AA meetings regularly. On [facility] Day he had a beer which led to a significant relapse. He has been consuming 2 pints of whiskey and several beers on a daily basis. PMH: Please see the H&P for a complete listing hepatitis C, asthma Past Psych History: -Outpatient Denies -Inpatient Denies Family Psych History: Unobtained Substance History History of polysubstance abuse dating back to age 14. Cocaine, marijuana, and alcohol are primary substances. -Treatment 2 previous [facility] Dual dx IOP admits in 2013 and 2014 Multiple rehab stays including [place], [facility], and [facility] - first at age 16, after which he maintained 3 years of sobriety Multiple inpatient detoxes Family Substance History: Father EtOH Social: . Recent intact family, mother and stepfather, with 2 brothers. 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 Has GED is currently unemployed. Abuse/Trauma: Denies Current Home Psychotropic Medications: Most recently prescribed in 10/2015 by Michelle LO Lexapro 10 mg daily Trazodone 150 mg daily at bedtime Current Hospital Psychotropic Medication Med Lorazepam IV Q1P PRN 09/20/16 1315 Lorazepam 2 MG PO Q6H 09/20/16 2045 Trazodone HCl 150 MG PO AT BEDTIME PRN 09/20/16 1330 Allergies: Coded Allergies: NO KNOWN ALLERGIES (12/30/15) Current Medications: Current Medications Sig/Trinity Start time Last Medication Dose Route Stop Time Status Admin Albuterol Sulfate 3 ML BID 09/21 2200 AC INH Albuterol Sulfate 3 ML Q4P PRN 09/21 1030 DC 09/21 INH 1058 Cyanocobalamin 250 MCG DAILY 09/21 1000 AC 09/21 PO 0854 Enoxaparin Sodium 40 MG DAILY 09/20 1312 AC 09/21 SC 0854 Folic Acid 1 MG DAILY 09/20 1315 AC PO Lorazepam 2 MG Q6H 09/20 2045 AC 09/21 PO 1445 Lorazepam 0 Q1P PRN 09/20 1315 AC 09/20 IV 1625 Lorazepam 2 MG Q6 09/20 1313 DC 09/20 PO 1445 Multivitamins 1 TAB DAILY 09/20 1312 AC 09/21 PO 0854 Ondansetron HCl 4 MG Q6-PRN PRN 09/20 1500 AC PO Sodium Chloride 1,000 ML Q10H 09/21 1030 AC 09/21 IV 1132 Thiamine HCl 500 MG Q8 09/20 1400 AC 09/21 Sodium Chloride 100 ML IV 1447 Trazodone HCl 150 MG AT BEDTIME PRN 09/20 1330 AC PO Past History Past Medical History Neurological: seizure, (WITHDRAWAL SEIZURES) EENT: NONE Cardiovascular: NONE Respiratory: asthma, COPD Gastrointestinal: GERD Hepatic: hepatitis C, ELEVATED LFT'S Renal: NONE Musculoskeletal: chronic back pain Psychiatric: alcohol dependence, anxiety Endocrine: NONE Blood Disorders: HEPATITIS C Cancer(s): NONE 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 GOODS/Reproductive: NONE Past Surgical History Surgical History: hernia repair-umbilical, SKIN GRAFT S/P BURN Psychosocial History Strengths/Capabilities: Able to ask for help when needed, open-minded to the idea of detox Physical Limitations (Interventions): None Psychiatric Treatment History Psych Treatment Psychiatric Treatment No Diagnosis: Alcohol use disorder, Severe; Cocaine use disorder, Moderate; Cannabis use disorder, Moderate; Risk Factors: high anxiety/distress, SA/MH hospitalized, substance abuse, lives alone, male, limited support Substance Use/Abuse History Drug Use/Abuse Substances Used/Abused Yes (as above) Substance Abuse Treatment Substance Abuse Treatment Past Substance Abuse [place] Yes (as above) Assessment/Plan Mental Status Mental Status Exam: Mental Status Exam Presentation/Appearance: Cooperative with evaluation. Hospital garb. Unkempt, diaphoretic Orientation: x4 Sensorium: Awake and alert Eye contact: Appropriate Affect: Somewhat blunted but congruent with stated mood Mood: "tired" Depression: Denies Anxiety: Denies Thought Content: - Denies SI/HI, AH/VH, PI. States and also believes they will not kill themselves. - Denies Hopeless/Helpless Thoughts Thought Process: Linear Speech: Minimal, soft Judgment: Fair Insight: Fair Cognition: Memory: Grossly intact Attention/Concentration: Fair MMSE: Did not assess Brief ROS Gait: No observed Sleep: Fair Appetite: Poor Energy: Low IADLs/ADLs: Independent Today the patient is open to considering medication for alcohol cravings and mood instability. Would like to discuss treatment options further later in his detox process. Lab Results: Laboratory Tests 09/21/16 0629: Anion Gap 13, Estimated GFR > 60, BUN/Creatinine Ratio 12.2, Magnesium 2.0 09/20/16 0840: Urine Opiates Screen 106.00, Methadone Screen < 40, Barbiturate Screen < 60, Ur Phencyclidine Scrn < 6.00, Amphetamines Screen < 100, U Benzodiazepines Scrn < 85, Urine Cocaine Screen > 1000 H, Urine Cannabis Screen > 80.00 H, Urine Color YEL, Urine Clarity CLEAR, Urine pH 6.5, Ur Specific [place] 1.010, Urine Protein NEG, Urine Ketones NEG, Urine Nitrite NEG, Urine Bilirubin NEG, Urine Urobilinogen 0.2, Ur Leukocyte Esterase NEG, Ur Microscopic EXAM NOT REQUIRED, Urine Hemoglobin NEG, Urine Glucose NEG 09/20/16 0814: Anion Gap 19 H, Estimated GFR > 60, BUN/Creatinine Ratio 10.0, Glucose 114 H, Calcium 9.3, Total Bilirubin 0.4, AST 36, ALT 36, Alkaline Phosphatase 73, Total Protein 7.6, Albumin 4.5, Globulin 3.1, Albumin/Globulin Ratio 1.5, Amylase 91, Lipase 210, Serum Alcohol 155.0 09/20/16 0749: CBC w Diff MAN DIFF ORDERED, RBC 5.05, MCV 90.1, MCH 29.8, RDW 17.3 H, MPV 7.5, Gran % 83.6 H, Lymphocytes % 9.1 L, Monocytes % 6.5, Eosinophils % 0.2, Basophils % 0.6, Absolute Granulocytes 12.2 H, Absolute Lymphocytes 1.3, Absolute Monocytes 0.9 H, Absolute Eosinophils 0, Absolute Basophils 0.1, Platelet Estimate VERIFIED BY SMEAR, Anisocytosis 1+, PUBS MCHC 33.1 Diffential Diagnosis: Alcohol use disorder, Severe Cocaine use disorder, Moderate Cannabis use disorder, Moderate r/o unspecified mood disorder Impression: 46-year-old male presents to [facility] for alcohol detox. He has a long pattern of relapse and is at high risk for continuing to use after treatment. Today he is agreeable to trial medication to help with his mood and alcohol cravings. Provisional Treatment Plan: 1. Continue CIWA and medicate appropriately. 2. Continue vitamin supplementation. 3. Will discuss options for mood stabilization with patient and the follow-up care that will be required start a mood stabilizer. 4. Patient would like to consider Campral or naltrexone once detox is complete. Thank you for including psychiatry in this case we'll continue to follow
[2016-09-22 02:00] VITALS: BP 120/60
[2016-09-22 02:06] VITALS: BP 120/60
[2016-09-22 06:21] VITALS: BP 122/60
--- NOTE | 2016-09-22 07:14 | PN- Housestaff ---
YASH AUGUSTIN,ADIA 09/22/16 0714: Subjective Follow-up For: EtOH Abuse/Withdrawal/Dependence Subjective: Patient seen and examined. He is seen lying flat in bed resting comfortably. He appears to be in no acute distress. He reports sleeping well and has no new subjective complaints. He is tolerating his ativan medication taper well and denies any tremor, hallucinations, or other symptoms of withdrawal. Additionally he denies any fever, chills, chest pain, shortnes of breath, nausea , vomiting, diarrhea. No overnight events reported. Review of Systems Constitutional: Reports: see HPI. Objective Last 24 Hrs of Vital Signs/I&O Vital Signs Date Time Temp Pulse Resp B/P B/P Pulse O2 O2 Flow FiO2 Mean Ox Delivery Rate 09/22 0807 98 Room Air Room Air 09/22 0800 98.4 74 20 122/60 09/22 0800 98 Room Air 09/22 0621 98.4 74 20 122/60 97 Room Air 09/22 0206 97.9 71 20 120/60 97 Room Air 09/22 0200 97.9 71 20 120/60 09/21 2223 98.6 66 19 120/60 97 Room Air 09/21 2200 98.6 66 19 120/60 /01 1928 98 Room Air Room Air 09/21 1600 97.8 89 16 138/84 Intake & Output 09/22 1600 09/22 0800 09/22 0000 Intake Total 1400 1280 1040 Output Total 800 1000 Balance 600 1280 40 Intake, IV 800 800 800 Intake, Oral 600 480 240 Output, Urine 800 1000 Physical Exam General Appearance: Alert, Cooperative, No Acute Distress Other Physical Findings: General- well developed, well nourished middle aged man in no acute distress HEENT- NCAT, PERRL, EOMI, anicteric sclera CVS- S1, S2 w/o m/g/r Resp- CTA bilaterally GI- Soft, nontender, nondistended, bowel sounds intact Neuro- Awake and alert, CN II - XII grossly intact, mild tremor Ext- normal pulses, no cyanosis/clubbing/edema Current Medications: Current Medications Sig/Trinity Start time Last Medication Dose Route Stop Time Status Admin Albuterol Sulfate 3 ML Q4 09/22 1000 AC INH Albuterol Sulfate 3 ML BID 09/21 2200 DC 09/22 INH 0805 Cyanocobalamin 250 MCG DAILY 05/01 1000 AC 09/22 PO 0915 Enoxaparin Sodium 40 MG DAILY 09/20 1312 AC 09/22 SC 0915 Folic Acid 1 MG DAILY 09/20 1315 AC 09/22 PO 0915 Lorazepam 1.5 MG Q6H 09/22 1445 AC 09/22 PO 1421 Lorazepam 2 MG Q6H 09/20 2045 DC 09/22 PO 0915 Lorazepam 0 Q1P PRN 09/20 1315 AC 09/20 IV 1625 Multivitamins 1 TAB DAILY 09/20 1312 AC 09/22 PO 0915 Nicotine 14 MG DAILY 09/22 1017 AC 09/22 TOP 1140 Ondansetron HCl 4 MG Q6-PRN PRN 09/20 1500 AC PO Patient Medication 1 ED .STK-MED ONE 09/22 1417 MT Teaching ED 09/22 1418 Sodium Chloride 1,000 ML Q10H 09/21 1030 AC 09/22 IV 0130 Thiamine HCl 500 MG Q8 09/20 1400 AC 09/22 Sodium Chloride 100 ML IV 1422 Trazodone HCl 150 MG AT BEDTIME PRN 09/20 1330 AC 09/21 PO 2202 Last 24 Hrs of Lab/Saul Results Last 24 Hrs of Labs/Mics: Laboratory Tests 09/21/16 1623: Urine Color Cancelled, Urine Clarity Cancelled, Urine pH Cancelled, Ur Specific [place] Cancelled, Urine Protein Cancelled, Urine Ketones Cancelled, Urine Nitrite Cancelled, Urine Bilirubin Cancelled, Urine Urobilinogen Cancelled, Ur Leukocyte Esterase Cancelled, Ur Microscopic Cancelled, Urine Hemoglobin Cancelled, Urine Glucose Cancelled Assessment/Plan Assessment: Patient slept well and has new symptoms. He was heard to be extensively wheezing this morning for which scheduled nebulizer treatments were ordered. This afternoon patient requested to leave against medical advice stating that he can "detox at home". Patient is awake and alert, he demonstrates understanding that he risks having a poor outcome by leaving early include withdrawal seizures and even possibly . Patient signed out against medical advice and was given no prescriptions. He was encouraged to follow up with his PCP and to return to the ED should he change his mind. EtOH Abuse/Withdrawal/Dependence/Polysubstance Abuse Patient with a history of etoh related illness including withdrawal seizures and multiple admissions for EtOH related complaints and polysubstance abuse seen for evaluation of alcohol intoxication. Vital signs upon initial evaluation were within normal limits. Physical examination demonstrated tremulousness and was otherwise normal. WBC 14.6, Hgb/Hct 15.1/45.5. Urine toxicology was positive for opiates, cocaine, and canabis; serum alcohol level was 155. Given patients extensive documented medical history of alcohol related disease and multiple admissions patient more likely than not is experiencing alcohol intoxication with eventual related sequelae of withdrawal. -General Medicine -CIWA protocol -NS @ 100mL/hr -Ativan PRN per CIWA -Ativan 2mg PO Q6H -Zofran 4mg PO Q6H PRN nausea -Thiamine 500mg IV Q8H -Thiamine/Folate/Multivitamin -Psych consult Pain Plain- Diet-Regular Diet DVT PPx-Lovenox Code Status-FULL CODE Problem List: 1. ALCOHOL WITHDRAWAL Pain Ratin Pain Location: None Pain Goal: Remain pain free Pain Plan: See assessment Tomorrow's Labs & Rationales: None BRIA AUGUSTIN,YOUSIF 09/22/16 1018: Attending MD Review Statement Attending Statement Attending MD Statement: examined this patient, discuss w/resident/PA/BORING INSPECTOR, agreed w/resident/PA/BORING INSPECTOR, reviewed EMR data (avail), discussed with nursing, discussed with case mgmt, amended to note Attending Assessment/Plan: Patient seen and examined. Resting comfortably eating breakfast this morning. Denies agitation. Denies pain. No events overnight reported by nursing staff. Denies cough or shortness of breath. On examination he is not tremulous. He does continue to have diffuse wheezing bilaterally with no improvement compared to yesterday. Recommendations: -Taper Ativan to 1.5 mg every 6 hours today. -Continue IV hydration. Continue diet as tolerated. -Mobilize patient. -Repeat CBCs and chemistry tomorrow. -Continue bronchodilator therapy. Please provide albuterol 4 times a day around -the-clock as patient continues to wheeze actively. -Patient reports a history of hepatitis C. He does not recall being treated for this. Recommend referral to outpatient GI service upon discharge.
[2016-09-22 08:00] VITALS: BP 122/60
--- NOTE | 2016-09-22 14:45 | NUR ---
PT'S BELONGINGS RETRIEVED FROM SAFE, EVERYTHING GIVEN BACK EXCEPT SUPERVISOR BLAST FURNACE, PT SIGNED FOR CORRECT COUNT
--- NOTE | 2016-09-22 15:01 | Patient Discharge Instructions ---
Discharge Instructions General Discharge Information Special Instructions: You are leaving AGAINST MEDICAL ADVICE. Doing so may result in worsening of your clinical condition, including but not limited to alcohol withdrawal seizures and even possibly . Call 911 or return to the ED should you change your mind or your condition worsen. Acute Coronary Syndrome Inclusion Criteria At DC or during hospital stay patient has or had the following: ACS DIAGNOSIS No Discharge Core Measures Meds if any: Prescribed or Continued at Discharge Meds if any: NOT Prescribed or Continued at Discharge Congestive Heart Failure Inclusion Criteria At DC or during hospital stay patient has or had the following: CHF DIAGNOSIS No Discharge Core Measures Meds if any: Prescribed or Continued at Discharge Meds if any: NOT Prescribed or Continued at Discharge Cerebrovascular accident Inclusion Criteria At DC or during hospital stay patient has or had the following: CVA/TIA Diagnosis No Discharge Core Measures Meds if any: Prescribed or Continued at Discharge Meds if any: NOT Prescribed or Continued at Discharge Venous thromboembolism Inclusion Criteria VTE Diagnosis No VTE Type NONE VTE Confirmed by (Test) NONE Discharge Core Measures - Per Current guidelines, there needs to be overlap - treatment for the first 5 days of Warfarin therapy. - If discharged on Warfarin prior to 5 days of - overlap therapy, the patient will need to be - assessed for post discharge needs including - *Post discharge parental anticoagulation - *Warfarin and/or parental anticoagulation education - *Follow up date to check INR post discharge At least 5 days overlap therapy as Inpatient No Meds if any: Prescribed or Continued at Discharge Note: Overlap Therapy is Warfarin and Anticoagulant Meds if any: NOT Prescribed or Continued at Discharge
--- NOTE | 2016-09-22 15:02 | PN- Psychiatry ---
Assessment/Plan Impression: Identifying Info: 46-year-old male known to this service presents presents to [facility] emergency department on 09/20/2016 requesting EtOH detox. He has a history of seizure and is admitted to to medicine. SUBJECTIVE Patient denies any psychiatric symptoms or s/s of ETOH withdrawl at this time. Expresses wish to leave hospital AMA. Brief ROS Gait: Steady Sleep: Adequate Appetite: Adequate OBJECTIVE Mental Status Exam Presentation/Appearance: Calm. Cooperative with evaluation. Hospital garb. Standing in room. Unkempt. Orientation: x4 Sensorium: Awake and alert Eye contact: Appropriate Affect: Somewhat constricted Mood: Denies any mood issues Depression: Denies Anxiety: Denies Thought Content: - Denies SI/HI, AH/VH, PI. States and also believes they will not kill themselves. - Denies Hopeless/Helpless Thoughts Thought Process: Linear Speech: WNL Judgment: Fair Insight: Poor Cognition: Memory: Grossly intact Attention/Concentration: Grossly intact Capacity assessment Patient is able to display the ability to communicate a choice and reason about treatment options. He is able to understand the relevant information and appreciate the situation and it's consequences including risk of Sz and in nontreatment. ASSESSMENT 46 -year-old male presents to [facility] for alcohol detox. He has a long pattern of relapse and is at high risk for continuing to use after treatment. Today he requests to leave AGAINST MEDICAL ADVICE and is able to satisfy requirements for healthcare decision and dispositional making capacity regarding his continued alcohol withdrawal treatment. Differential diagnosis Alcohol use disorder, Severe Cocaine use disorder, Moderate Cannabis use disorder, Moderate r/o unspecified mood disorder Suggestion: 1. Patient has capacity and may leave AMA. 2. Patient declines formal f/u care and would like to f/u with AA in the community. Thank you for including psychiatry in this case we are signing off. Subjective Subjective: as above Objective Last 24 Hrs of Vital Signs/I&O Current Medications Sig/Trinity Start time Last Medication Dose Route Stop Time Status Admin Albuterol Sulfate 3 ML Q4 09/22 1000 AC INH Albuterol Sulfate 3 ML BID 09/21 2200 DC 09/22 INH 0805 Cyanocobalamin 250 MCG DAILY 09/21 1000 AC 09/22 PO 0915 Enoxaparin Sodium 40 MG DAILY 09/20 1312 AC 09/22 SC 0915 Folic Acid 1 MG DAILY 09/20 1315 AC 09/22 PO 0915 Lorazepam 1.5 MG Q6H 09/22 1445 AC 09/22 PO 1421 Lorazepam 2 MG Q6H 09/20 2045 DC 09/22 PO 0915 Lorazepam 0 Q1P PRN 09/20 1315 AC 09/20 IV 1625 Multivitamins 1 TAB DAILY 09/20 1312 AC 09/22 PO 0915 Nicotine 14 MG DAILY 09/22 1017 09/22 TOP 1140 Ondansetron HCl 4 MG Q6-PRN PRN 09/20 1500 AC PO Patient Medication 1 ED .STK-MED ONE 09/22 1417 DC Teaching ED 09/22 1418 Sodium Chloride 1,000 ML Q10H 09/21 1030 09/22 IV 0130 Thiamine HCl 500 MG Q8 09/20 1400 AC 09/22 Sodium Chloride 100 ML IV 1422 Trazodone HCl 150 MG AT BEDTIME PRN 09/20 1330 AC 09/21 PO 2202 Laboratory Tests 09/21/16 1623: Urine Color Cancelled, Urine Clarity Cancelled, Urine pH Cancelled, Ur Specific [place] Cancelled, Urine Protein Cancelled, Urine Ketones Cancelled, Urine Nitrite Cancelled, Urine Bilirubin Cancelled, Urine Urobilinogen Cancelled, Ur Leukocyte Esterase Cancelled, Ur Microscopic Cancelled, Urine Hemoglobin Cancelled, Urine Glucose Cancelled Vital Signs Date Time Temp Pulse Resp B/P B/P Pulse O2 O2 Flow FiO2 Mean Ox Delivery Rate 09/22 0807 98 Room Air Room Air 09/22 0800 98.4 74 20 122/60 / 0800 98 Room Air 09/22 0621 98.4 74 20 122/60 97 Room Air 09/22 0206 97.9 71 20 120/60 97 Room Air / 0200 97.9 71 20 120/60 09/21 2223 98.6 66 19 120/60 97 Room Air 09/21 2200 98.6 66 19 120/60 / 1928 98 Room Air Room Air 09/21 1600 97.8 89 16 138/84 Intake & Output 09/22 1600 05/ 0800 05 0000 Intake Total 1400 1280 1040 Output Total 800 1000 Balance 600 1280 40 Intake, IV 800 800 800 Intake, Oral 600 480 240 Output, Urine 800 1000
--- NOTE | 2016-09-22 15:30 | NUR ---
1530: PT SIGNED AMA FORM WITH DR. BERRIOS, PT WAS SUPPOSE TO WAIT FOR ATTENDING TO COME TALK WITH PT, PT WALKED OUT WITHOUT RECIEVING DISCHARGE INSTRCTIONS, AWARE
--- NOTE | 2016-09-24 08:15 | Discharge Summary ---
Visit Information Visit Dates Admission Date: 09/20/16 Discharge Date: 09/22/16 Hospital Course Course Attending Physician: YOUSIF FRASER M.D Primary Care Physician: LARISSA GONZALEZ Consulting Request: Consulting Specialty: Psychiatry Hospital Course: 46 year old man with an extensive history of polysubstance abuse and multiple hospitalizations for alcohol abuse/withdrawal/dependence/seizures, hepatitis C, asthma, and anxiety seen for evaluation of alcohol intoxication. Patients last drink was just prior to inital evaluation. He was most recently admitted to [facility] in May 2016 for similar reasons for which he was continued on an ativan taper and discharged to home with instruction to follow up with alcoholics anonymous. EtOH Abuse/Withdrawal/Dependence/Polysubstance Abuse Patient with a history of etoh related illness including withdrawal seizures and multiple admissions for EtOH related complaints and polysubstance abuse seen for evaluation of alcohol intoxication. Vital signs upon initial evaluation were within normal limits. Physical examination demonstrated tremulousness and was otherwise normal. WBC 14.6, Hgb/Hct 15.1/45.5. Urine toxicology was positive for opiates, cocaine, and canabis; serum alcohol level was 155. Given patients extensive documented medical history of alcohol related disease and multiple admissions patient more likely than not is experiencing alcohol intoxication with eventual related sequelae of withdrawal. He was admitted to the general medicnie floor and stated on CIWA protocol with a scheduled ativan taper. Patient was continued on the taper for two days with mildly elevated CIWA scores requiring small amounts of additional intravenous ativan. Psychiatry consult was placed for patients history of polysubstance abuse. On hospital day 3 patient requested to leave AGAINST MEDICAL ADVICE. He was seen and assessed and was determined to have capacity. He was encouraged to complete his course of ativan as he was at risk for alcohol withdrawal symptoms and possible seizures which could result in pneumonia, falls, or even . He verbalized understanding of theses risks and signed paperwork acknowledging so that was made part of his paper chart. Allergies: Coded Allergies: NO KNOWN ALLERGIES (12/30/15) Disposition Summary Disposition Principal Diagnosis: EtOH abuse/withdrawal/dependence Additional Diagnosis: None Discharge Disposition: left against medical adv Discharge Instructions General Discharge Information Code Status: Full Code Patient's Diet: Regular diet Patient's Activity: Full activity as tolerated Follow-Up Instructions/Appts: Patient left against medical advice Medications at Discharge Discharge Medications: Continue taking these medications: Esomeprazole Magnesium (Nexium) 20 MG CAPSULE. 1 Capsule ORAL DAILY Comments: Last Taken:06/10/16 ( PRILOSEC GIVEN IN HOSPITAL ) Time:0600 Trazodone HCl (Trazodone HCl) 150 MG TABLET 1-2 Tablet ORAL Every night as needed for SLEEP Qty = 30 Copies To: LARISSA GONZALEZ Attending MD Review Statement Documenting Attending: YOUSIF FRASER M.D Other Findings: I reviewed the discharge summary.
== END 2016-09-22 15:45 | disposition left against medical advice (07) | DRG 894 ==
LOC: ERH 07:24 → 2NA 12:53 → ERHI 12:53 → ENRESERV 15:22 → 2NA 16:34
PROVIDERS: Emergency Medicine; ADMIT Internal Medicine
DX: F10.239 Alcohol dependence with withdrawal, unspecified (principal); J44.9 Chronic obstructive pulmonary disease, unspecified; Y90.6 Blood alcohol level of 120-199 mg/100 ml; J45.909 Unspecified asthma, uncomplicated; K21.9 Gastro-esophageal reflux disease without esophagitis; B19.20 Unspecified viral hepatitis C without hepatic coma; F19.10 Other psychoactive substance abuse, uncomplicated; F41.9 Anxiety disorder, unspecified
CPT/HCPCS: 2NASP; 80307; 81003; 82436; 93005; 93010; 96365; 96366; 96375; 96376; G0480; J1650; J2405; J3101; J3490; J7060

== ENCOUNTER 2016-09-26 09:43 | Emergency (ER) | payer OTHER ==
[~2016-09-26 09:43] MED LIST changes: +TRAZODONE HCL150 M1 PO
--- NOTE | 2016-09-26 13:28 | ED AMS/SEIZURE/WEAK/DIZZY ---
History of Present Illness General Chief Complaint: ETOH/Drug Related Complaint Stated Complaint: BIBA ETOH, SEIZURE W/FALL Source: patient, old records, EMS Exam Limitations: no limitations Vital Signs & Intake/Output Vital Signs & Intake/Output Vital Signs Date Time Temp Pulse Resp B/P B/P Pulse O2 O2 Flow FiO2 Mean Ox Delivery Rate 09/26 1158 97.5 98 18 138/83 98 Room Air 09/26 0950 97.2 104 20 135/83 95 Room Air Allergies Coded Allergies: NO KNOWN ALLERGIES (12/30/15) Reconcile Medications Esomeprazole Magnesium (Nexium) 20 MG CAPSULE.DR 1 CAP PO DAILY GI (Reported) Trazodone HCl 150 MG TABLET 1-2 TAB PO QPM PRN SLEEP (Reported) Triage Note: PT BIBA FOR ETOH AND SEIZURE. PER EMS PT WAS RECENTLY IN REHAB AND SIGNED OUT AMA 3 DAYS EARLY. 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 PT ALSO NOTED TO HAVE A GENERALIZED SEZIURE BY EMS. PER RESIDENT SERVICES COORDINATOR SEIZURE LASTED A FEW SECONDS. PT ALERT AND ORIENTED ON ARRIVAL. PT HAS A C-COLLAR IN PLACE BY EMS. PT HAS NO COMPLAINTS ON ARRIVAL Triage Nurses Notes Reviewed? yes Onset: Just prior to arrival Duration: minute(s):, better Timing: recent history Injury Environment: work Severity: moderate Modifying Factors: Improves With: rest. HPI: Patient recently hospitalized for alcohol withdrawal for 3 days and signed out AGAINST MEDICAL ADVICE 2 days prior to admission. Prior to admission he was drinking beer and working having a generalized tonic- clonic seizure resolving prior to admission. He denies fever chills nausea vomiting diarrhea abdominal pain chest pain shortness breath headache dysuria rash bleeding change motor sensory function change in bowel bladder habit. Past History Travel History Traveled to [place] past 21 day No Medical History Any Pertinent Medical History? 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 Hx Contributory? No Review of Systems Review of Systems Constitutional: Reports: no symptoms. EENTM: Reports: no symptoms. Respiratory: Reports: no symptoms. Cardiovascular: Reports: no symptoms. GI: Reports: no symptoms. Genitourinary: Reports: no symptoms. Musculoskeletal: Reports: no symptoms. Skin: Reports: no symptoms. Neurological/Psychological: Reports: see HPI, tonic-clonic seizures. Hematologic/Endocrine: Reports: no symptoms. Immunologic/Allergic: Reports: no symptoms. All Other Systems: Reviewed and Negative Physical Exam Physical Exam General Appearance: well developed/nourished, alert, awake, anxious, comfortable Head: atraumatic, normal appearance Eyes: Bilateral: normal appearance, PERRL, EOMI. Ears, Nose, Throat: normal pharynx, normal ENT inspection, hearing grossly normal Neck: normal inspection, supple, full range of motion, no midline tenderness Respiratory: normal breath sounds, chest non-tender, no respiratory distress, quiet respiration, lungs clear Cardiovascular: regular rate/rhythm, normal peripheral pulses, norml femoral pulses equa Peripheral Pulses: 4+ carotid (R), 4+ carotid (L) Gastrointestinal: normal bowel sounds, non-tender, no organomegaly Back: normal inspection, normal range of motion Extremities: normal range of motion Neurologic/Psych: no motor/sensory deficits, awake, alert, oriented x 3, normal gait, normal mood/affect, 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 Skin: intact, normal color, warm/dry Lymphatic: no anterior cervical pavel Core Measures ACS in differential dx? No CVA/TIA Diagnosis: No Severe Sepsis Present: No Septic Shock Present: No Progress Differential Diagnosis: alcohol intoxication, drug intoxication, electrolyte imbalance, seizure disorder Plan of Care: Current Medications Sig/Trinity Start time Last Medication Dose Stop Time Status Admin Lorazepam 2 MG ONCE ONE 09/26 1015 AC (Ativan) 09/26 1016 Initial ED EKG: none Comments: Patient declines testing and alcohol detox at this time. Departure Departure Time of Disposition: 1341 Disposition: HOME OR SELF CARE Condition: Stable Clinical Impression Primary Impression: Seizure due to alcohol withdrawal Qualifiers: Complication of substance-induced condition: uncomplicated Qualified Code: F10.230 - Alcohol dependence with withdrawal, uncomplicated Referrals: MATT LO,LARISSA MONTOYA (PCP/Family) Departure Forms: Customer Survey General Discharge Information Prescriptions: Current Visit Scripts Chlordiazepoxide HCl 0 PO SEE ADMIN CRITERIA PRN alcohol detox #24 CAP 1-2 tabs 3 times a day for 2 days 1-2 tabs 2 times a day for 2 days 1-2 tabs 1 time a day for 2 days
[2016-09-26] MEDS ORDERED: CHLORDIAZEPOXID25 M3 PO (13:43)
[2016-09-26 13:45] VITALS: BP 134/76
== END 2016-09-26 14:07 ==
LOC: ERH 09:43
DX: F10.239 Alcohol dependence with withdrawal, unspecified (principal); R56.9 Unspecified convulsions

== ENCOUNTER 2017-08-11 09:30 | Inpatient (IN) | payer OTHER ==
[~2017-08-11] VITALS: Ht 175.3 cm; Wt 62.4 kg
[2017-08-11] VITALS (8 sets, daily range): BP systolic 110–148; BP diastolic 67–96
[~2017-08-11 09:30] MED LIST changes: +AUGMENTIN 875-1 EACH PO; +BACTRIM DS TAB1 EACH PO; +NICOTINE PATCH1 EAC2 TOP; +PERCOCET 5-3251 EACH PO; +[UNRECOGNIZED DRUG - OTHER] TOP
--- NOTE | 2017-08-11 09:45 | ED PSYCHIATRIC COMPLAINT ---
History of Present Illness General Chief Complaint: ETOH/Drug Related Complaint Stated Complaint: DETOX FROM ETOH Source: patient, old records Exam Limitations: no limitations Vital Signs & Intake/Output Vital Signs & Intake/Output Vital Signs Date Time Temp Pulse Resp B/P B/P Pulse O2 O2 Flow FiO2 Mean Ox Delivery Rate 08/14 0730 98.6 79 18 108/81 100 Room Air 08/14 0000 Room Air 08/13 2306 99.3 82 18 112/75 99 Room Air 08/13 1600 98.5 84 18 106/72 08/13 1415 98.5 84 18 106/72 97 Room Air ED Intake and Output 08/14 0000 08/13 1200 Intake Total 1130 Output Total 0 Balance 1130 Intake, IV 10 Intake, Oral 1120 Number 0 Bowel Movements Output, Urine 0 Patient 128 lb Weight Allergies Coded Allergies: No Known Allergies (01/06/17) Triage Note: REQUESTING TO BE ADMITTED FOR ALCOHOL DETOX, STATES HE DRINKS WHISKEY AND BEER AND SMOKES COCAINE. STATES, "IV'E BEEN GOOD FOR A WEEK BUT THE DEALERS KEEP CALLING". REPORTS HE HAS BEEN DRINKING ALL NIGHT. DENIES SI OR HI. PMH: SEIZURES. Triage Nurses Notes Reviewed? yes Onset: Gradual Duration: constant Severity: moderate Severity Numbers: 5 HPI: PT IS A 47 Y/O MALE WITH A PMH OF polysubstance abuse, alcohol dependence, withdrawal seizures, pancreatitis, status post multiple detoxes in the past ( most recently Feb 2017), Hep C, COPD/asthma, anxiety/depression patient's last admission was 3 months ago however for concerns of #Right second finger cellulitis, MRSA who presents emergency room stating that after his discharge from [facility] approximately 3 months ago he's been drinking persistently ever since patient states that yesterday he tried detoxing from alcohol himself however he drank a 12 pack and nips yesterday and smoke crack. It is unknown patient's last alcohol which all seizure. Patient denies any suicide or homicidal ideation. Patient states he only drank one beer today "that's all I had" Denies any auditory or visual hallucinations, patient denies any chest pain arm pain jaw pain current nausea or vomiting headaches. Patient states he did receive a ride from his AA sponsor to the emergency room. Patient has everY day tobacco smoker (Lynda LO,Guillaume) Reconcile Medications Azithromycin 250 MG TABLET 250 MG PO DAILY COPD Esomeprazole Magnesium (Nexium) 20 MG CAPSULE. 1 CAP PO DAILY GI (Reported) Multivitamin (One Daily Multivitamin) 1 EACH TABLET 1 TAB PO DAILY supplement . (Mike AUGUSTIN,Darby) Past History Travel History Traveled to [place] past 21 day No Medical History Any Pertinent Medical History? 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 Hx Contributory? No (Guillaume Alves) Review of Systems Review of Systems Constitutional: Reports: see HPI. Denies: chills, fever. EENTM: Reports: no symptoms. Respiratory: Reports: no symptoms. Cardiovascular: Reports: no symptoms. GI: Reports: no symptoms. Genitourinary: Reports: no symptoms. Musculoskeletal: Reports: no symptoms. Skin: Reports: no symptoms. Neurological/Psychological: Reports: see HPI. Hematologic/Endocrine: Reports: no symptoms. Immunologic/Allergic: Reports: no symptoms. All Other Systems: Reviewed and Negative (Guillaume Alves) Physical Exam Physical Exam General Appearance: no apparent distress, alert, comfortable Head: atraumatic Eyes: Bilateral: normal appearance. Ears, Nose, Throat: normal pharynx, normal ENT inspection Neck: normal inspection Respiratory: no respiratory distress, rhonchi Cardiovascular: regular rate/rhythm Gastrointestinal: soft, non-tender Extremities: normal range of motion Neurological/Psychiatric: no motor/sensory deficits Appearance/Memory/Insight: disheveled Behavoir/Eye Contact/Speech: cooperative, good eye contact Thoughts/Hallucinations: normal thought pattern, no apparent hallucination Skin: intact SAD PERSONS Done? patient not suicidal (Guillaume Alves) Progress Differential Diagnosis: drug intoxication, drug overdose, drug withdrawal, electrolyte abnormality, encephalitis, hypoglycemia, hypothyroidism, IC hem/mass /tumor, meningitis Plan of Care: Orders Procedure Date/time Status Seizure Precautions 08/13 170 Active AEROSOL CHG 08/12 UNK Complete Current Medications Sig/Trinity Start time Last Medication Dose Stop Time Status Admin Lorazepam 1 MG BID 08/15 1000 AC (Ativan) Lorazepam 2 MG Q12 08/14 1000 AC (Ativan) 08/14 230 Melatonin 5 MG AT BEDTIME 08/13 2200 AC 08/13 (Melatonin) 2110 Azithromycin 250 MG DAILY 08/13 1000 AC 08/13 (Zithromax) 09 Cyanocobalamin 1,000 MCG DAILY 08/12 1000 AC 08/13 (Vitamin B12) 0914 Folic Acid 1 MG DAILY 08/12 1000 AC 08/13 (Folic Acid) 0914 Guaifenesin 600 MG Q12 08/12 1000 AC 08/13 (Mucinex) 211 Multivitamins 1 TAB DAILY 08/12 1000 AC 08/13 Therapeutic 0914 (Theragran-M Vitamins Tabs) Nicotine 21 MG DAILY 08/12 1000 AC 08/13 (Nicoderm) 1837 Thiamine HCl 100 MG DAILY 08/12 1000 AC 08/13 (Vitamin B1) 0914 Omeprazole 20 MG DAILY AC 08/12 0700 AC 08/14 (Prilosec) 0542 Albuterol Sulfate 3 ML Q4P PRN 08/11 2345 AC 08/12 (Proventil) 2040 Acetaminophen 650 MG Q6P PRN 08/11 1600 AC 08/13 (Tylenol) 1629 Ketorolac 15 MG Q6P PRN 08/11 1600 AC Tromethamine 08/14 1559 (Toradol) Guaifenesin 10 ML Q4 HRS NEEDED PRN 08/11 1545 AC (Robitussin) Lorazepam See Dose Q1P PRN 08/11 1545 AC 08/11 (Ativan) Insts (1 1801 Dose Instructions: (1)Lorazepam (Ativan): See Admin Criteria Blood work and urinalysis and drug screen will be evaluated, patient will obtain CIWA EVAL BY NURSING STAFF. Patient upon initial presentation was resting comfortably at bedside no apparent distress denies any nausea INITAL CIWA SCORED AT 6 ETOH NOTED TO BE 145. PT HAS HX OF ETOH withdrawal seizures noted from old records REPEAT CIWA 1203- 5 1434- patient CIWA was noted to be 11 and per [facility] policy that patient has criteria to be admitted for alcohol withdrawal Patient was given Ativan protocol Initial ED EK BPM, MULTIPLE ARTIFACT NOTED (Guillaume Alves) Departure Departure Disposition: STILL A PATIENT Condition: Guarded Clinical Impression Primary Impression: Alcohol dependence Secondary Impressions: Cocaine abuse Referrals: Lizz LO,Michelle Thomas (PCP/Family) Departure Forms: Customer Survey General Discharge Information Admission Note Spoke With: Netta Enrique MD Documentation of Exam: Documentation of any treatments & extenuating circumstances including Concerns Regarding Discharge (functional status, medication knowledge or non-compliance, living conditions, etc.) that warrant an admission rather than observation: [ Patient requires admission for concerns of alcohol withdrawal Ativan administration, crisis consultation, repeat labs,] (Guillaume Alves) Departure Prescriptions: Current Visit Scripts Azithromycin 250 MG PO DAILY #1 TAB PA/LOOPING MACHINE OPERATOR Co-Sign Statement Statement: ED Attending supervision documentation- [X] I saw and evaluated the patient. I have also reviewed all the pertinent lab results and diagnostic results. I agree with the findings and the plan of care as documented in the PA's/LOOPING MACHINE OPERATOR's documentation. [X] I have reviewed the ED Record and agree with the PA's/LOOPING MACHINE OPERATOR's documentation. [] Additions or exceptions (if any) to the PAs/LOOPING MACHINE OPERATOR's note and plan are summarized below: [] (Mike AUGUSTIN,Darby) Critical Care Note Critical Care Note Critical Care Time: 30-74 min (Guillaume Alves)
[2017-08-11 10:31] LABS: ABSOLUTE BASOPHIL COUNT 0.1 /CUMM (0.0-0.2); ABSOLUTE EOSINOPHIL COUNT 0.1 /CUMM (0.0-0.7); ABSOLUTE LYMPH COUNT 1.7 /CUMM (1.2-3.4); ABSOLUTE MONOCYTE COUNT 0.7 /CUMM (0.10-0.60); BASOPHIL % 1.2 % (0.0-2.0); EOSINOPHIL % 1.9 % (0-5); GRANULOCYTE % 60.9 % (42.2-75.2); MEAN CORPUSCULAR HGB 31.4 PG (27.0-31.0); MEAN CORPUSCULAR HGB CONC 33.3 G/DL (33.0-37.0); MEAN CORPUSCULAR VOLUME 94.3 FL (80.0-94.0); MEAN PLATELET VOLUME 7.6 FL (7.4-10.4); PLATELET COUNT 392 /CUMM (130-400); RBC DISTRIBUTION WIDTH 15.9 % (11.5-14.5); RED BLOOD CELL CT 4.77 /CUMM (4.70-6.10); WHITE BLOOD CELL COUNT 6.6 /CUMM (4.8-10.8)
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
--- NOTE | 2017-08-11 19:52 | RADIOLOGY REPORT ---
EXAMINATION: XR PORTABLE CHEST CLINICAL INFORMATION: Cough. History of COPD. COMPARISON: Chest x-rays 01/06/2017 and 02/28/2017. TECHNIQUE: Portable upright AP view of the chest was obtained. FINDINGS: The lung [place] are hyperexpanded. They appear clear bilaterally. The cardiac silhouette is normal. The aortic arch is slightly unfolded. There are no pleural effusions or pneumothorax. The central pulmonary vasculature is normal. The hilar regions appear normal. The study redemonstrates multiple healed posterior right rib fractures. IMPRESSION: 1. There are no acute cardiopulmonary findings.
[2017-08-12] VITALS (10 sets, daily range): BP systolic 102–120; BP diastolic 70–82
--- NOTE | 2017-08-12 06:57 | PN- Housestaff ---
[place] AUGUSTIN,Jessica 08/12/17 0657: Subjective Follow-up For: Alcohol use disorder Complaints: cough Subjective: Patient seen and examined at bedside. He was comfortably sitting in his chair. No overnight events. He complains of cough on and off with white sputum production. He denies fever, nausea, vomiting, abdominal pain, chest pain, shortness of breath, palpitation. He denies visual and oriented hallucination. He denies suicidal ideation. Review of Systems Constitutional: Reports: see HPI. Objective Last 24 Hrs of Vital Signs/I&O Vital Signs Date Time Temp Pulse Resp B/P B/P Pulse O2 O2 Flow FiO2 Mean Ox Delivery Rate 08/12 1441 98.0 105 20 120/70 96 Room Air 08/12 1200 98.8 96 18 115/70 08/12 1026 97.9 89 20 110/74 95 Room Air 08/12 0823 97.9 103 20 110/82 93 Room Air 08/12 0800 97.9 70 20 118/78 08/12 0800 95 Room Air 08/12 0635 97.9 70 20 118/78 95 Room Air 08/12 0401 97.7 89 20 116/72 94 Room Air 08/12 0139 98.0 70 20 118/82 95 Room Air 08/11 2346 98.0 72 20 110/84 95 Room Air 08/11 2327 Room Air 08/11 2229 97.6 78 18 126/70 95 Room Air 08/11 2200 97.6 78 18 126/70 08/11 2000 98.7 98 18 110/70 08/11 1840 Room Air 08/11 1840 98.6 98 18 110/78 95 Room Air 08/11 1840 98.7 98 18 110/70 95 Room Air 08/11 1758 98.6 105 20 111/84 08/11 1757 98.6 105 15 111/84 100 Room Air Room Air 08/11 1605 97.6 104 18 131/67 96 Room Air 08/11 1600 97.9 104 18 131/67 Intake & Output 08/12 1600 08/12 0800 08/12 0000 Intake Total 600 1000 760 Output Total 300 300 Balance 300 1000 460 Intake, IV 1000 460 Intake, Oral 600 300 Number 0 0 Bowel Movements Output, Urine 300 300 Patient 133 lb 155 lb Weight Weight Reported by Patient Measurement Method Physical Exam General Appearance: Alert, Oriented X3, Cooperative, No Acute Distress Cardiovascular: Regular Rate, Normal S1, Normal S2, No Murmurs Lungs: Clear to Auscultation Abdomen: Normal Bowel Sounds, Soft, No Tenderness, No Hepatospenomegaly Neurological: Strength at 5/5 X4 Ext, Normal Tone, Sensation Intact, Cranial Nerves 3-12 NL Current Medications: Current Medications Sig/Trinity Start time Last Medication Dose Route Stop Time Status Admin Acetaminophen 650 MG Q6P PRN 08/11 1600 AC PO Albuterol Sulfate 3 ML Q4P PRN 08/11 2345 AC INH Azithromycin 250 MG DAILY 08/13 1000 AC PO Azithromycin 500 MG ONCE ONE 08/12 1315 DC 08/12 PO 08/12 1316 1537 Cyanocobalamin 1,000 MCG DAILY 08/12 1000 AC 08/12 PO 0906 Cyanocobalamin/ 1 BAG ONCE ONE 08/11 1545 DC 08/11 Thiamine/Pyridoxine IV 08/11 2344 1710 Dextrose/Water 1,000 ML Folic Acid 1 MG DAILY 08/12 1000 AC 08/12 PO 0906 Guaifenesin 600 MG Q12 08/12 1000 AC 08/12 PO 1020 Guaifenesin 10 ML Q4 HRS NEEDED PRN 08/11 1545 AC PO Influenza Virus 0.5 ML ONCE ONE 08/11 1945 DC Vaccine IM 08/11 1946 Ketorolac 15 MG Q6P PRN 08/11 1600 AC Tromethamine IV 08/14 1559 Lorazepam 0 .STK-MED ONE 08/11 1805 DC .ROUTE Lorazepam 0 .STK-MED ONE 08/11 1609 DC PO Lorazepam 2 MG Q6H 08/11 1545 AC 08/12 PO 1537 Lorazepam See Dose Q1P PRN 08/11 1545 AC 08/11 Insts (1) IV 1802 Lorazepam 2 MG Q6 08/11 1433 DC 08/11 IV 08/11 2358 1453 Multivitamins 1 TAB DAILY 08/12 1000 AC 08/12 Therapeutic PO 0906 Nicotine 21 MG DAILY 08/12 1000 AC 08/12 TOP 0905 Omeprazole 20 MG DAILY AC 08/12 0700 AC 08/12 PO 0618 Thiamine HCl 100 MG DAILY 08/12 1000 AC 08/12 PO 0906 Dose Instructions: (1)Lorazepam: See Admin Criteria Last 24 Hrs of Lab/Saul Results Last 24 Hrs of Labs/Mics: Laboratory Tests 08/11/17 1552: PT Cancelled, INR Cancelled Assessment/Plan Assessment: 47-year-old man currently active smoker with history of polysubstance abuse, alcohol dependence, withdrawal seizures, pancreatitis, status post multiple detoxes in the past (most recently Feb 2017), Hep C, COPD, anxiety/depression patient came for EtOH detox. Assessment and plan 1. Alcohol detox 2. Polysubstance abuse-cocaine use 3. COPD 4. Anxiety/depression * She complains of cough. We will start TRC nebulization and azithromycin to help with inflammation. * Ativan per CIWA a protocol. We will start him on Ativan 2 mg every 6, Ativan 1 mg nightly when necessary. LFTs normal. Electrolytes normal. Patient scoring CIWA 11. Continue current management. * Seizure precaution, fall precaution. Regular diet * dairy cattle farm worker to see the patient today * Chest x-ray taken yesterday was normal. * Nicotine patch 14 mg daily. * GI prophylaxis-omeprazole * Code-full code * DVT prophylaxis-apls Problem List: 1. Alcohol intoxication 2. Alcohol dependency 3. Alcohol dependence with withdrawal Pain Ratin Pain Location: NONE Pain Goal: Remain pain free Pain Plan: TYLENOL Tomorrow's Labs & Rationales: CBC,BEP BlayneHerbert hastings 08/12/17 1241: Attending MD Review Statement Attending Statement Attending MD Statement: examined this patient, discuss w/resident/PA/MOLD YARD CRANE OPERATOR, agreed w/resident/PA/MOLD YARD CRANE OPERATOR, discussed with family, reviewed EMR data (avail), discussed with nursing, discussed with case mgmt, reviewed images, amended to note Attending Assessment/Plan: Cont current care, add abx for bronchitis. ciwa and ativan as per ciwa for withdrawal.
[2017-08-13 02:10] VITALS: BP 106/70
[2017-08-13 07:07] VITALS: BP 102/72
--- NOTE | 2017-08-13 07:48 | PN- Housestaff ---
America AUGUSTIN,Jessica 08/13/17 0748: Subjective Follow-up For: Alcohol detox, bronchitis Complaints: no complaints Subjective: Patient seen and examined at bedside. Patient complains of nonproductive cough. Patient feels better after starting nebulization treatment. He denies fever, chest pain, shortness of breath, visual/auditory hallucinations, suicidal ideation. Review of Systems Constitutional: Reports: see HPI. Objective Last 24 Hrs of Vital Signs/I&O Vital Signs Date Time Temp Pulse Resp B/P B/P Pulse O2 O2 Flow FiO2 Mean Ox Delivery Rate 08/13 0800 97.5 78 18 102/72 08/13 0800 95 Room Air 08/13 0707 97.5 78 18 102/72 95 Room Air 08/13 0210 98.0 82 18 106/70 96 Room Air 08/13 0000 Room Air 08/12 2147 98.6 105 19 102/80 98 Room Air 08/12 2040 98 Room Air 08/12 1600 98.8 100 20 110/70 08/12 1441 98.0 105 20 120/70 96 Room Air Intake & Output 08/13 1600 08/13 0800 08/13 0000 Intake Total Output Total Balance Patient 128 lb Weight Physical Exam General Appearance: Alert, Oriented X3, Cooperative, No Acute Distress Cardiovascular: Regular Rate, Normal S1, Normal S2, No Murmurs Lungs: bilateral wheeze Abdomen: Soft, No Tenderness, No Hepatospenomegaly Neurological: Strength at 5/5 X4 Ext, Normal Tone, Sensation Intact Extremities: No Cyanosis, No Edema, Normal Pulses Current Medications: Current Medications Sig/Trinity Start time Last Medication Dose Route Stop Time Status Admin Acetaminophen 650 MG Q6P PRN 08/11 1600 AC PO Albuterol Sulfate 3 ML Q4P PRN 08/11 2345 AC 08/12 INH 2040 Azithromycin 250 MG DAILY 08/13 1000 AC 08/13 PO 0914 Cyanocobalamin 1,000 MCG DAILY 08/12 1000 AC 08/13 PO 0914 Folic Acid 1 MG DAILY 08/12 1000 AC 08/13 PO 0914 Guaifenesin 600 MG Q12 08/12 1000 AC 08/13 PO 0914 Guaifenesin 10 ML Q4 HRS NEEDED PRN 08/11 1545 AC PO Ketorolac 15 MG Q6P PRN 08/11 1600 AC Tromethamine IV 08/14 1559 Lorazepam 2 MG Q8 08/13 2199 UNVr PO Lorazepam 2 MG Q6H 08/11 1545 DC 08/13 PO 0914 Lorazepam See Dose Q1P PRN 08/11 1545 AC 08/11 Insts (1) IV 1802 Melatonin 5 MG AT BEDTIME 08/13 2199 AC PO Melatonin 3 MG ONCE ONE 08/12 2199 DC 08/12 PO 08/12 2200 220 Multivitamins 1 TAB DAILY 08/12 1000 AC 08/13 Therapeutic PO 0914 Nicotine 21 MG DAILY 08/12 1000 AC 08/13 TOP 0913 Omeprazole 20 MG DAILY AC 08/12 0700 AC 08/13 PO 0601 Thiamine HCl 100 MG DAILY 08/12 1000 AC 08/13 PO 0914 Dose Instructions: (1)Lorazepam: See Admin Criteria Last 24 Hrs of Lab/Saul Results Last 24 Hrs of Labs/Mics: Laboratory Tests 08/13/17 0705: Anion Gap 11, Estimated GFR > 60, BUN/Creatinine Ratio 14.3 Assessment/Plan Assessment: 47-year-old man currently active smoker with history of polysubstance abuse, alcohol dependence, withdrawal seizures, pancreatitis, status post multiple detoxes in the past (most recently Feb 2017), Hep C, COPD, anxiety/depression patient came for EtOH detox. Assessment and plan 1. Alcohol detox 2. Polysubstance abuse-cocaine use 3. COPD 4. Anxiety/depression * he still has cough, but improving with nebulization. Continue azithromycin. * Ativan per CIWA a protocol. We will reduce the Ativan 2 mg every 6 to every 8. Patient scoring CIWA 9. Continue current management * Seizure precaution, fall precaution. Regular diet * order worker to see the patient today * Chest x-ray taken was normal. * Nicotine patch 14 mg daily. * GI prophylaxis-omeprazole * Code-full code * DVT prophylaxis-apls Problem List: 1. Alcohol withdrawal 2. Bronchitis Pain Ratin Pain Location: none Pain Goal: Remain pain free Pain Plan: tylenol Tomorrow's Labs & Rationales: cbc,bep BlayneMichele hastingsyifan 08/13/17 1112: Attending Review Statement Attending Statement Attending MD Statement: examined this patient, discuss w/resident/PA/MANAGER FRENCH, agreed w/resident/PA/MANAGER FRENCH, discussed with family, reviewed EMR data (avail), discussed with nursing, discussed with case mgmt, reviewed images, amended to note Attending Assessment/Plan: No new complaints. Cont current care, abx for bronchitis. ciwa and ativan as per ciwa for withdrawal. Anticipate dc as his clinical conditon improves.
[2017-08-13 08:00] VITALS: BP 102/72
[2017-08-13 14:15] VITALS: BP 106/72
--- NOTE | 2017-08-13 15:36 | Patient Discharge Instructions ---
Discharge Instructions General Discharge Information You were seen/treated for: Alcohol dependence, polysubstance abuse, bronchitis. Watch for these problems: In case of chest pain, chest pressure, nausea, vomiting, abdominal pain, visual/ auditory hallucination please go to the nearest emergency room. Special Instructions: Please follow-up with your primary care provider within 1-2 weeks of discharge. Please follow-up with IOP within 1 week of discharge. Diet Continue normal diet: No Recommended Diet: Regular Activity Full Activity/No Limits: No Activity Self Limited: No Acute Coronary Syndrome Inclusion Criteria At DC or during hospital stay patient has or had the following: ACS DIAGNOSIS No Discharge Core Measures Meds if any: Prescribed or Continued at Discharge Meds if any: NOT Prescribed or Continued at Discharge Congestive Heart Failure Inclusion Criteria At DC or during hospital stay patient has or had the following: CHF DIAGNOSIS No Discharge Core Measures Meds if any: Prescribed or Continued at Discharge Meds if any: NOT Prescribed or Continued at Discharge Cerebrovascular accident Inclusion Criteria At DC or during hospital stay patient has or had the following: CVA/TIA Diagnosis No Discharge Core Measures Meds if any: Prescribed or Continued at Discharge Meds if any: NOT Prescribed or Continued at Discharge Venous thromboembolism Inclusion Criteria VTE Diagnosis No VTE Type NONE VTE Confirmed by (Test) NONE Discharge Core Measures - Per Current guidelines, there needs to be overlap - treatment for the first 5 days of Warfarin therapy. - If discharged on Warfarin prior to 5 days of - overlap therapy, the patient will need to be - assessed for post discharge needs including - *Post discharge parental anticoagulation - *Warfarin and/or parental anticoagulation education - *Follow up date to check INR post discharge At least 5 days overlap therapy as Inpatient No Meds if any: Prescribed or Continued at Discharge Note: Overlap Therapy is Warfarin and Anticoagulant Meds if any: NOT Prescribed or Continued at Discharge
[2017-08-13] MEDS ORDERED: AZITHROMYCIN250 M1 PO (15:43)
[2017-08-13 16:00] VITALS: BP 106/72
[2017-08-13 23:06] VITALS: BP 112/75
[2017-08-14 07:30] VITALS: BP 108/81
--- NOTE | 2017-08-14 08:08 | PN- Housestaff ---
Kingsley AGUUSTIN,[facility] 08/14/17 0807: Subjective Follow-up For: Alcohol detox Bronchitis Complaints: no complaints Tele-Events Since Last Visit: Patient states that his cough is improving. He denies headache, nausea, hallucinations, shortness of breath, chest pain or palpitations. He has been scoring zeroes to 2 in CIWA scores over last 24 hours and is on. Ativan 2 mg every 8 hours. Review of Systems Constitutional: Reports: see HPI. Denies: chills, fever. EENTM: Denies: blurred vision. Objective Last 24 Hrs of Vital Signs/I&O Vital Signs Date Time Temp Pulse Resp B/P B/P Pulse O2 O2 Flow FiO2 Mean Ox Delivery Rate 08/14 0730 98.6 79 18 108/81 100 Room Air 08/14 0000 Room Air 08/13 2306 99.3 82 18 112/75 99 Room Air 08/13 1600 98.5 84 18 106/72 08/13 1415 98.5 84 18 106/72 97 Room Air Intake & Output 08/14 1600 08/14 0800 08/14 0000 Intake Total 490 250 Output Total Balance 490 250 Intake, IV 10 10 Intake, Oral 480 240 Number 0 0 Bowel Movements Patient 138 lb Weight Weight Bed scale Measurement Method Physical Exam General Appearance: Alert, Oriented X3, Cooperative, No Acute Distress Skin: No Rashes Skin Temp/Moisture Exam: Warm/Dry Sepsis Skin Exam (color): Normal for Ethnicity HEENT: Atraumatic, PERRLA, EOMI, Mucous Membr. moist/pink Neck: Supple, No JVD Lymphatic: Cervical nl Cardiovascular: Regular Rate, Normal S1, Normal S2, No Murmurs Lungs: Normal Air Movement, few scattered wheezes bilaterally Abdomen: Normal Bowel Sounds, Soft, No Tenderness, No Hepatospenomegaly, No Masses Neurological: Normal Speech, Normal Tone Extremities: No Edema Current Medications: Current Medications Sig/Trinity Start time Last Medication Dose Route Stop Time Status Admin Acetaminophen 650 MG .STK-MED ONE 08/13 1629 DC PO 08/13 1630 Acetaminophen 650 MG Q6P PRN 08/11 1600 AC 08/13 PO 1629 Albuterol Sulfate 3 ML Q4P PRN 08/11 2345 AC 08/12 INH 2040 Azithromycin 250 MG DAILY 08/13 1000 AC 08/14 PO 0913 Cyanocobalamin 1,000 MCG DAILY 08/12 1000 AC 08/14 PO 0913 Folic Acid 1 MG DAILY 08/12 1000 AC 08/14 PO 0913 Guaifenesin 600 MG Q12 08/12 1000 AC 08/14 PO 0913 Guaifenesin 10 ML Q4 HRS NEEDED PRN 08/11 1545 AC PO Ketorolac 15 MG Q6P PRN 08/11 1600 AC Tromethamine IV 08/14 1559 Lorazepam 1 MG BID 08/15 1000 AC PO Lorazepam 2 MG Q12 08/14 1000 AC PO 08/14 2300 Lorazepam 2 MG Q8 08/13 2200 DC 08/14 PO 0542 Lorazepam 2 MG Q6H 08/11 1545 DC 08/13 PO 0914 Lorazepam See Dose Q1P PRN 08/11 1545 AC 08/11 Insts (1) IV 1802 Melatonin 5 MG AT BEDTIME 08/13 2200 AC 08/13 PO 2111 Multivitamins 1 TAB DAILY 08/12 1000 AC 08/14 Therapeutic PO 0913 Nicotine 21 MG DAILY 08/12 1000 AC 08/13 TOP 1837 Omeprazole 20 MG DAILY AC 08/12 0700 AC 08/14 PO 0542 Thiamine HCl 100 MG DAILY 08/12 1000 AC 08/14 PO 0913 Dose Instructions: (1)Lorazepam: See Admin Criteria Assessment/Plan Assessment: The patient is a 47-year-old man currently active smoker with history of polysubstance abuse, alcohol dependence, withdrawal seizures, pancreatitis, status post multiple detoxes in the past (most recently Feb 2017), Hep C, COPD, and anxiety/depression. He came in for alcohol detoxification. Assessment and plan 1. Alcohol detox * His is scoring very low on CIWA scores with mostly zeros. He is on by mouth Ativan 2 mg every 8 hours. Will reduce this to by mouth Ativan 2 mg twice a day today * Plan to taper this to 1 mg twice a day tomorrow and discharge to IOP placement * Continue IV Ativan as per CIWA protocol 2. Polysubstance abuse-cocaine use * Patient has been counseled by social welfare administrator 3. COPD/acute bronchitis * His cough is improving with nebulizer treatments and with by mouth azithromycin * Continue. Continue by mouth Azithromycin therapy 4. Smoker * Continue Nicotine patch 21 mg daily. GI prophylaxis-omeprazole Code status is full code DVT prophylaxis-apls Problem List: 1. ALCOHOL WITHDRAWAL 2. Alcohol intoxication 3. Cocaine use Pain Ratin Pain Location: None Pain Goal: Remain pain free Pain Plan: Tylenol when necessary Tomorrow's Labs & Rationales: None needed DVT/Prophylaxis: richard Morejon MD,Thea 08/14/17 1416: Attending MD Review Statement Attending Statement Attending MD Statement: examined this patient, discuss w/resident/PA/SURVEILLANCE INVESTIGATOR, agreed w/resident/PA/SURVEILLANCE INVESTIGATOR, reviewed EMR data (avail), discussed with nursing, reviewed images, amended to note Attending Assessment/Plan: Patient seen and examined, fels better. No further shaking. CIWA score are low. Vital Signs Date Time Temp Pulse Resp B/P B/P Pulse O2 O2 Flow FiO2 Mean Ox Delivery Rate 08/14 0730 98.6 79 18 108/81 100 Room Air 08/14 0000 Room Air 08/13 2306 99.3 82 18 112/75 99 Room Air 08/13 1600 98.5 84 18 106/72 on exam; aox3, nad. cv; s1,s2, rrr resp; clear abd; soft, nt, bs+ ext; no edema. no labs. A/P; 47 y/o M with pmh sig for polysubstance abuse, alcohol dependence, withdrawal seizures, pancreatitis, status post multiple detoxes in the past ( most recently Feb 2017), Hep C, COPD, and anxiety/depression admitted with acute alcohol intoxications and acute bronchitis. Continue ativan taper. On po azithro and TRc nebs. SW eval for outpateint rehab plan. DVt px; ALPS.
[2017-08-14 15:26] VITALS: BP 110/78
[2017-08-14 23:51] VITALS: BP 113/73
[2017-08-15 07:01] VITALS: BP 121/74
--- NOTE | 2017-08-15 08:26 | PN- Housestaff ---
[place] AUGUSTIN,Jessica 08/15/17 0826: Subjective Follow-up For: Alcohol detox and bronchitis Complaints: no complaints Subjective: Patient seen and examined at bedside. He says his cough has improved. He denies headache, nausea, tremors, vomiting, abdominal pain, chest pain. His last 24 hours CIWA score is 0 Review of Systems Constitutional: Reports: see HPI. Objective Last 24 Hrs of Vital Signs/I&O Vital Signs Date Time Temp Pulse Resp B/P B/P Pulse O2 O2 Flow FiO2 Mean Ox Delivery Rate 08/15 0701 97.7 79 18 121/74 100 Room Air 08/15 0010 86 08/15 0000 Room Air 08/14 2351 98.4 107 20 113/73 100 Room Air 08/14 1526 98.0 80 20 110/78 98 Room Air Intake & Output 08/15 1600 08/15 0800 08/15 0000 Intake Total 480 1290 Output Total Balance 480 1290 Intake, IV 0 10 Intake, Oral 480 1280 Number 0 0 Bowel Movements Physical Exam General Appearance: Alert, Oriented X3, Cooperative, No Acute Distress Cardiovascular: Normal S1, Normal S2, No Murmurs Lungs: Normal Air Movement Abdomen: Soft, No Tenderness, No Hepatospenomegaly Neurological: Strength at 5/5 X4 Ext, Normal Tone, Sensation Intact Extremities: No Cyanosis, No Edema, Normal Pulses Current Medications: Current Medications Sig/Trinity Start time Last Medication Dose Route Stop Time Status Admin Acetaminophen 650 MG Q6P PRN 08/11 1600 AC 08/13 PO 1629 Albuterol Sulfate 3 ML Q4P PRN 08/11 2345 AC 08/12 INH 2040 Azithromycin 250 MG DAILY 08/13 1000 AC 08/15 PO 0821 Cyanocobalamin 1,000 MCG DAILY 08/12 1000 AC 08/15 PO 0821 Folic Acid 1 MG DAILY 08/12 1000 AC 08/15 PO 0821 Guaifenesin 10 ML .STK-MED ONE 08/14 2258 DC PO 08/14 2259 Guaifenesin 600 MG Q12 08/12 1000 AC 08/15 PO 0821 Guaifenesin 10 ML Q4 HRS NEEDED PRN 08/11 1545 AC 08/14 PO 2259 Ketorolac 15 MG Q6P PRN 08/11 1600 DC Tromethamine IV 08/14 1559 Lorazepam 1 MG BID 08/15 1000 AC 08/15 PO 0821 Lorazepam 2 MG Q12 08/14 1000 DC 08/14 PO 08/14 2300 2259 Lorazepam See Dose Q1P PRN 08/11 1545 AC 08/11 Insts (1) IV 1802 Melatonin 5 MG AT BEDTIME 08/13 2200 AC 08/14 PO 2259 Multivitamins 1 TAB DAILY 08/12 1000 AC 08/15 Therapeutic PO 0821 Nicotine 21 MG DAILY 08/12 1000 AC 08/15 TOP 0821 Omeprazole 20 MG DAILY AC 08/12 0700 AC 08/15 PO 0634 Thiamine HCl 100 MG DAILY 08/12 1000 AC 08/15 PO 0821 Dose Instructions: (1)Lorazepam: See Admin Criteria Assessment/Plan Assessment: The patient is a 47-year-old man currently active smoker with history of polysubstance abuse, alcohol dependence, withdrawal seizures, pancreatitis, status post multiple detoxes in the past (most recently Feb 2017), Hep C, COPD, and anxiety/depression. He came in for alcohol detoxification. Assessment and plan 1. Alcohol detox * His is scoring 0 on CIWA. He is on by mouth Ativan 1 mg every 8 hours. * Plan to discharge home and follow outpatient IOP placement * Continue IV Ativan as per CIWA protocol 2. Polysubstance abuse-cocaine use * Patient has been counseled by social work manager 3. COPD/acute bronchitis * His cough is improving with nebulizer treatments and with by mouth azithromycin * Continue. Continue by mouth Azithromycin therapy 4. Smoker * Continue Nicotine patch 21 mg daily. GI prophylaxis-omeprazole Code status is full code DVT prophylaxis-apls Problem List: 1. Bronchitis 2. Alcohol withdrawal Pain Ratin Pain Location: none Pain Goal: Remain pain free Pain Plan: tylenol Tomorrow's Labs & Rationales: none Jean-Pierre AUGUSTIN,Thea 08/15/17 1254: Attending MD Review Statement Attending Statement Attending MD Statement: examined this patient, discuss w/resident/PA/AUDIT ANALYST, agreed w/resident/PA/AUDIT ANALYST, reviewed EMR data (avail), discussed with nursing, reviewed images, amended to note Attending Assessment/Plan: Patient seen and examined, doing overall better. CIWA scores are running low. Patient on Ativan taper. Vital Signs Date Time Temp Pulse Resp B/P B/P Pulse O2 O2 Flow FiO2 Mean Ox Delivery Rate 08/15 0701 97.7 79 18 121/74 100 Room Air 08/15 0010 86 08/15 0000 Room Air 08/14 2351 98.4 107 20 113/73 100 Room Air 08/14 1526 98.0 80 20 110/78 98 Room Air on exam; aox3, nad. cv; s1,s2, rrr resp; clear abd; soft, nt, bs+ ext; no edema. no labs. A/P; 47 y/o M with pmh sig for polysubstance abuse, alcohol dependence, withdrawal seizures, pancreatitis, status post multiple detoxes in the past ( most recently Feb 2017), Hep C, COPD, and anxiety/depression admitted with acute alcohol intoxications and acute bronchitis. Continue ativan taper. Ativan taper will be finished tomorrow. On po alonso and Arthur nebs. MYRNA galo for outpateint rehab plan. DVt px; ALPS.
[2017-08-15 13:24] VITALS: BP 106/60
[2017-08-15 21:32] VITALS: BP 108/70
[2017-08-16 05:43] VITALS: BP 112/82
--- NOTE | 2017-08-16 07:35 | PN- Housestaff ---
[place] AUGUSTIN,Jessica 08/16/17 0735: Subjective Follow-up For: Alcohol use disorder Complaints: no complaints Subjective: Patient seen and examined at bedside. No complaints. Denies headache, abdominal pain, hallucinations, suicidal ideation. Review of Systems Constitutional: Reports: see HPI. Objective Last 24 Hrs of Vital Signs/I&O Vital Signs Date Time Temp Pulse Resp B/P B/P Pulse O2 O2 Flow FiO2 Mean Ox Delivery Rate 08/16 0543 98.2 70 20 112/82 100 Room Air 08/15 2132 98.1 66 18 108/70 98 Room Air Physical Exam General Appearance: Alert, Oriented X3, Cooperative, No Acute Distress Cardiovascular: Regular Rate, Normal S1, Normal S2 Lungs: Clear to Auscultation Abdomen: Soft, No Tenderness, No Hepatospenomegaly Neurological: Strength at 5/5 X4 Ext, Normal Tone, Sensation Intact Extremities: No Edema, Normal Pulses Current Medications: Current Medications Sig/Trinity Start time Last Medication Dose Route Stop Time Status Admin Acetaminophen 650 MG Q6P PRN 08/11 1600 DCD 08/13 PO 1629 Albuterol Sulfate 3 ML Q4P PRN 08/11 2345 DCD 08/12 INH 2040 Azithromycin 250 MG DAILY 08/13 1000 DCD 08/16 PO 0925 Cyanocobalamin 1,000 MCG DAILY 08/12 1000 DCD 08/16 PO 0931 Folic Acid 1 MG DAILY 08/12 1000 DCD 08/16 PO 0924 Guaifenesin 600 MG Q12 08/12 1000 DCD 08/16 PO 0924 Guaifenesin 10 ML Q4 HRS NEEDED PRN 08/11 1545 DCD 08/14 PO 2259 Lorazepam 1 MG DAILY 08/16 1000 DCD 08/16 PO 0924 Lorazepam 1 MG BID 08/15 1000 DC 08/15 PO 2215 Lorazepam See Dose Q1P PRN 08/11 1545 DCD 08/11 Insts (1) IV 1802 Melatonin 5 MG AT BEDTIME 08/13 2200 DCD 08/15 PO 2214 Multivitamins 1 TAB DAILY 08/12 1000 DCD 08/16 Therapeutic PO 0924 Nicotine 21 MG DAILY 08/12 1000 DCD 08/16 TOP 0924 Omeprazole 20 MG DAILY AC 08/12 0700 DCD 08/16 PO 0513 Thiamine HCl 100 MG DAILY 08/12 1000 DCD 08/16 PO 0925 Dose Instructions: (1)Lorazepam: See Admin Criteria Assessment/Plan Assessment: The patient is a 47-year-old man currently active smoker with history of polysubstance abuse, alcohol dependence, withdrawal seizures, pancreatitis, status post multiple detoxes in the past (most recently Feb 2017), Hep C, COPD, and anxiety/depression. He came in for alcohol detoxification. Assessment and plan 1. Alcohol detox * His is scoring 0 on CIWA. He is on by mouth Ativan 1 mg every 8 hours. * Plan to discharge home and follow outpatient IOP placement * Continue IV Ativan as per CIWA protocol 2. Polysubstance abuse-cocaine use * Patient has been counseled by director social service 3. COPD/acute bronchitis * His cough is improving with nebulizer treatments and with by mouth azithromycin * Continue. Continue by mouth Azithromycin therapy 4. Smoker * Continue Nicotine patch 21 mg daily. GI prophylaxis-omeprazole Code status is full code DVT prophylaxis-apls Problem List: 1. Alcohol dependency 2. ETOH abuse Pain Ratin Pain Location: none Pain Goal: Remain pain free Pain Plan: tylenol Tomorrow's Labs & Rationales: none BlayneHerbert hastings 08/16/17 1232: Attending MD Review Statement Attending Statement Attending MD Statement: examined this patient, discuss w/resident/PA/SENIOR PRODUCT ENGINEER, agreed w/resident/PA/SENIOR PRODUCT ENGINEER, discussed with family, reviewed EMR data (avail), discussed with nursing, discussed with case mgmt, reviewed images, amended to note Attending Assessment/Plan: Patient medically stable for discharge. Patient should f/u o/p PCP. He is advised to abstain from alcohol in future.
--- NOTE | 2017-08-16 08:48 | Discharge Summary ---
Visit Information Visit Dates Admission Date: 08/11/17 Discharge Date: 08/16/17 Hospital Course Course Attending Physician: Herbert Cisneros MD Primary Care Physician: Michelle Morris Hospital Course: 47-year-old man currently active smoker with history of polysubstance abuse, alcohol dependence, withdrawal seizures, pancreatitis, status post multiple detoxes in the past (most recently Feb 2017), Hep C, COPD, anxiety/depression patient came for EtOH detox. Patient was admitted in April for right second finger cellulitis. After discharge patient has been drinking lot of Rum, beer and smoking cigarettes 1 packet per day. On and off patient has been smoking cocaine. His last drink was on the morning of this admission [had beer and was smoking cocaine the day prior to admission . He denies using any other illicit drugs. Last admission for EtOH detox was in February 2017. Patient has had withdrawal seizures last summer. Never been intubated or had ICU admission in the past. Patient denies admission in any other hospital for EtOH detox. On the day of admission patient went to to get help to come to emergency room. Patient had tremors, increased sweating, increased bowel movement, weight abdominal pain, cough with sputum production greenish yellow, running nose for the past 1 week. He thought that he would have the seizures hence he brought himself to the ED. Patient has been not drinking and eating well for the past few day prior to admission. He denies visual/auditory/tactile hallucination, suicidal ideation, chest pain, shortness of breath, headache, loss of consciousness, seizures, weakness, numbness During the same time he drank 1 bottle of beer. Everyday patient used to drink from 5 nips [more than half pint]. 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 The patient had EGD scope before he is ago to rule out Nena Carlo tear [ reports unknown]. Patient also gives history of hepatitis C diagnosed in the past and has not had any treatment for the same. Hospital course: 1. Alcohol detox * Patient was treated for alcohol detox with tapering dose of Ativan. On the day of discharge patient scored 0 in CIWA. * Planned to discharge home and follow outpatient IOP placement 2. Polysubstance abuse-cocaine use * Patient has been counseled by social service agency director. 3. COPD/acute bronchitis * Patient came in with cough with nasal congestion. Patient found to have acute bronchitis and he was treated with nebulization and by mouth azithromycin. Patient condition improved well upon discharge. 4. Smoker * Continue Nicotine patch 21 mg daily. Patient sent home with follow-up with IOP. Patient sent home with his home medication. Allergies: Coded Allergies: No Known Allergies (01/06/17) Pertinent Lab Results: Chest x-ray There are no acute cardiopulmonary findings. Disposition Summary Disposition Principal Diagnosis: Alcohol use disorder Additional Diagnosis: Polysubstance abuse Discharge Disposition: home or self care Discharge Instructions General Discharge Information Code Status: Full Code Patient's Diet: Regular diet Patient's Activity: As tolerated Follow-Up Instructions/Appts: Please follow-up with your primary care provider and IOP as outpatient within 1- 2 weeks of discharge. Medications at Discharge Discharge Medications: Continue taking these medications: Esomeprazole Magnesium (Nexium) 20 MG CAPSULE. 1 Capsule ORAL DAILY Comments: OMEPROZOLE GIVEN IN HOSPITAL 08/16/17 @ 5:13 AM Multivitamin (One Daily Multivitamin) 1 EACH TABLET 1 Tablet ORAL DAILY Qty = 30 Instructions: . Comments: Last Taken:08/16/17 Time:09:24 AM Copies To: Michelle Morris Attending MD Review Statement Documenting Attending: Herbert Cisneros MD Other Findings: Patient medically stable for discharge. Patient should f/u o/p PCP. He is advised to abstain from alcohol in future.
== END 2017-08-16 12:40 | DRG 774 ==
LOC: ERH 09:30 → ERHI 14:47 → 2NB 14:47 → CANRESERV 16:58 → ENRESERV 16:58 → EDBEDREQ 17:33 → ENRESERV 17:39 → ENTRNSPT 17:56 → 2NB 18:28 → CMPTRNSPT 18:30 → ENPENDDIS 08-16 09:17 → 2NB 08-16 12:40
PROVIDERS: Physician Assistant
DX: F10.239 Alcohol dependence with withdrawal, unspecified (principal); B18.2 Chronic viral hepatitis C; F17.210 Nicotine dependence, cigarettes, uncomplicated; F14.10 Cocaine abuse, uncomplicated; K21.9 Gastro-esophageal reflux disease without esophagitis; F41.9 Anxiety disorder, unspecified; M54.9 Dorsalgia, unspecified; F32.9 Major depressive disorder, single episode, unspecified; J20.9 Acute bronchitis, unspecified; J44.0 Chronic obstructive pulmonary disease with (acute) lower respiratory infection
CPT/HCPCS: 36415; 71045; 80307; 81001; 82436; 87804; 87804-59; 93005; 93010; 96374; G0480; J0456; J3490; J7060

== ENCOUNTER 2017-10-21 15:17 | Inpatient (IN) | payer OTHER ==
[~2017-10-21] VITALS: Ht 175.3 cm; Wt 65.8 kg
[~2017-10-21 15:17] MED LIST changes: +AZITHROMYCIN250 M1 PO
--- NOTE | 2017-10-21 15:43 | ED PSYCHIATRIC COMPLAINT ---
History of Present Illness General Chief Complaint: Psychiatric Related Complaint Stated Complaint: "I TRIED KILLING MYSELF LAST NIGHT" Source: patient Exam Limitations: intoxication Vital Signs & Intake/Output Vital Signs & Intake/Output Vital Signs Date Time Temp Pulse Resp B/P B/P Pulse O2 O2 Flow FiO2 Mean Ox Delivery Rate 10/22 1406 98.5 82 18 118/71 06/ 1400 98.5 82 18 118/71 97 Room Air 06/ 1137 97.1 84 18 126/67 06/ 1125 97.1 87 18 126/67 94 Room Air / 0843 98.4 104 18 96/71 99 Room Air / 0638 97.6 105 16 105/78 06/ 0636 97.6 104 16 105/78 06/ 0338 97.2 73 20 135/68 06/ 0202 97.1 82 20 120/77 10/22 0100 97.2 88 20 127/84 10/22 0001 98.8 100 20 130/80 10/21 1908 98.1 88 20 104/62 10/21 1908 98.1 88 20 104/62 96 Room Air ED Intake and Output 10/22 0000 10/21 1200 Intake Total 0 Output Total Balance 0 Intake, Oral 0 Patient 150 lb Weight Weight Estimated Measurement Method Allergies Coded Allergies: No Known Allergies (01/06/17) Reconcile Medications Esomeprazole Magnesium (Nexium) 20 MG CAPSULE. 1 CAP PO DAILY GI (Reported) Multivitamin (One Daily Multivitamin) 1 EACH TABLET 1 TAB PO DAILY supplement . Triage Note: RECEIVED 47 YO MALE STATED HE WAS ARRESTED YESTERDAY FOR DUI AND WHILE HE WAS AT THE POLICE STATION, HE TRIED HANGING HIMSELF. PT HEAVILY INTOXICATED IN TRIAGE. PT REPORTS HE GETS WITHDRAWL SEIZURES. PT REPORTS SUICIDE IDEATION. Triage Nurses Notes Reviewed? yes Onset: Abrupt HPI: 47-year-old male comes into the emergency room for further evaluation of alcohol intoxication and suicidal ideation. He was recently arrested. He tried hanging himself in the cell. He has a history of alcohol withdrawal seizures. Denies any other illicit drug use. Denies any pain currently. Comes in for further evaluation. Denies any family support. (Roc LO,Anderson) Past History Travel History Traveled to [place] past 21 day No Medical History Any Pertinent Medical History? see below for history Neurological: seizure, (WITHDRAWAL SEIZURES) EENT: NONE Cardiovascular: NONE Respiratory: asthma, COPD Gastrointestinal: GERD, paz acosta tear Hepatic: hepatitis C, ELEVATED LFT'S Renal: NONE Musculoskeletal: chronic back pain Psychiatric: alcohol dependence, anxiety Endocrine: NONE Blood Disorders: HEPATITIS C Cancer(s): NONE EEO OFFICER/Reproductive: NONE History of MRSA: Yes History of VRE: No History of CDIFF: No Tetanus Vaccine: 06/21/16 Surgical History Surgical History: hernia repair-umbilical, SKIN GRAFT S/P BURN Psychosocial History Who do you live with Patient/Self Services at Home None What is your primary language Eritrean Tobacco Use: Current Daily Use Daily Tobacco Use Amount/Type: => 5 Cigarettes daily ETOH Use: alcoholic Family History Family History, If Any: FATHER FHx: alcoholism MOTHER FH: lung cancer MOTHER (gout). Hx Contributory? No (Anderson Fine) Review of Systems Review of Systems Constitutional: Reports: no symptoms. EENTM: Reports: no symptoms. Respiratory: Reports: no symptoms. Cardiovascular: Reports: no symptoms. GI: Reports: no symptoms. Genitourinary: Reports: no symptoms. Musculoskeletal: Reports: no symptoms. Skin: Reports: no symptoms. Neurological/Psychological: Reports: see HPI. Hematologic/Endocrine: Reports: no symptoms. Immunologic/Allergic: Reports: no symptoms. All Other Systems: Reviewed and Negative (Anderson Fine) Physical Exam Physical Exam General Appearance: well developed/nourished, intoxicated Head: atraumatic Eyes: Bilateral: normal appearance. Ears, Nose, Throat: normal ENT inspection, hearing grossly normal Neck: normal inspection Respiratory: normal breath sounds, no respiratory distress Cardiovascular: regular rate/rhythm Extremities: normal range of motion Neurological/Psychiatric: alert Appearance/Memory/Insight: disheveled, impaired insight Behavoir/Eye Contact/Speech: cooperative Skin: intact, normal color, warm/dry SAD PERSONS SAD PERSONS Response Value Male Sex? yes 1 Age <19 or >45 years? yes 1 Depression/Hopelessness? yes 2 Excessive Ethanol/Drug Use? yes 1 Rational Thinking Loss? yes 2 Single//? yes 1 Total 8 SAD PERSONS Done? yes (Anderson Fine) Progress Differential Diagnosis: dementia, drug intoxication, drug overdose, drug withdrawal, DEPRESSION, ANXIETY, BIPOLAR, Plan of Care: Orders Procedure Date/time Status Regular Diet 10/22 D Active Continuous Observation Monitor 10/22 1900 Active Pathway - chart 10/22 1546 Active House Staff 10/22 1546 Active Patient Data 10/22 1546 Active Code Status 10/22 1546 Active Continuous Observation Monitor 10/22 1500 Active Patient Data 10/22 1431 Active OXYGEN SETUP (GEN) 10/22 1429 Active Saline Lock 10/22 1429 Active Admit to inpatient 10/22 1429 Active Vital Signs 10/22 1429 Active Activity/Ambulation 10/22 1429 Active Code Status 10/22 1429 Complete Continuous Observation Monitor 10/22 1100 Active CASE MANAGEMENT CONSULT 10/22 0854 Active Continuous Observation Monitor 10/22 0700 Active Pathway - chart 10/22 0129 Active VTE Mechanical Prophylaxis 10/22 UNK Active CIWA 10/22 UNK Active SOCIAL WORK CONSULT 10/22 UNK Active PSYCHIATRIC CONSULT 10/22 UNK Active Intake & Output 10/21 1716 Active Current Medications Sig/Trinity Start time Last Medication Dose Stop Time Status Admin Multivitamins 1 TAB DAILY 10/23 09 AC (Theragran Vitamins) Nicotine 21 MG DAILY 10/23 0900 AC (Nicoderm) Thiamine HCl 100 MG DAILY 10/23 0900 AC (Vitamin B1) Cyanocobalamin/ 1 BAG DAILY@1800 10/22 1800 AC Thiamine/Pyridoxine (Vitamin in I.V.) Dextrose/Water 1,000 ML (D5W 1000) Lorazepam 2 MG Q6 10/22 1800 AC (Ativan) Lorazepam 0 Q1P PRN 10/22 1700 AC (Ativan) Ibuprofen 600 MG 4 TIMES/DAY PRN 10/22 1130 AC 10/22 (Motrin) 1136 Ondansetron HCl 4 MG Q4-6 PRN PRN 10/22 0130 AC (Zofran) Hand-Off Endorsed To: Iraj Gardner MD Endorsed Time: 1922 (Roc LO,Anderson) Comments: 10/22/2017 1:29:28 AM patient signed out to me by WALLY at shift size changer. Patient meets criteria for inpatient detoxification according to the [facility] emergency medicine alcohol detoxification protocol. His case has been discussed with case management. Preauthorization is being obtained via the [employer]. 10/22/2017 7:15:53 AM patient signed out to Dr. Swenson at shift size changer. (Kendra AUGUSTIN,Iraj Diamond) Comments: No longer suicidal. Requests alcohol detox. Last withdrawal seizure 2 weeks ago. (Vinh Swenson MD) Departure Departure Disposition: STILL A PATIENT Condition: Stable Clinical Impression Primary Impression: ETOH abuse Secondary Impressions: Suicidal ideation Referrals: Michelle Morris (PCP/Family) Departure Forms: Customer Survey General Discharge Information (Roc LO,Anderson) Alcohol Withdrawl Admission ED Alcohol Detox Admission d/t: DTs/Seizure w/i last year, Acute MedCond D/T Alcohol (Vinh Swenson MD)
[2017-10-21 15:51] LABS: ABSOLUTE BASOPHIL COUNT 0.1 /CUMM (0.0-0.2); ABSOLUTE EOSINOPHIL COUNT 0.3 /CUMM (0.0-0.7); ABSOLUTE GRANULOCYTE CT 7.1 /CUMM (1.4-6.5); ABSOLUTE LYMPH COUNT 2.3 /CUMM (1.2-3.4); ABSOLUTE MONOCYTE COUNT 1.6 /CUMM (0.10-0.60); BASOPHIL % 0.6 % (0.0-2.0); EOSINOPHIL % 2.3 % (0-5); GRANULOCYTE % 62.3 % (42.2-75.2); HEMATOCRIT 41.6 % (42-52); MEAN CORPUSCULAR HGB CONC 33.5 G/DL (33.0-37.0); MEAN CORPUSCULAR VOLUME 95.5 FL (80.0-94.0); MEAN PLATELET VOLUME 7.5 FL (7.4-10.4); PLATELET COUNT 478 /CUMM (130-400); RBC DISTRIBUTION WIDTH 15.9 % (11.5-14.5); RED BLOOD CELL CT 4.36 /CUMM (4.70-6.10); WHITE BLOOD CELL COUNT 11.3 /CUMM (4.8-10.8)
[2017-10-21 19:08] VITALS: BP 104/62
[2017-10-22] VITALS (9 sets, daily range): BP systolic 105–138; BP diastolic 67–98
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
--- NOTE | 2017-10-22 17:04 | PN- Att Addend ---
Attending Addendum Attending Brief Note 47M PMH chronic smoker, hepatitis C, COPD, anxiety, depression, polysubstance abuse disorder, multiple failed attempts for alcohol detox complicated by withdrawal seizure, pancreatitis presenting with alcohol withdrawal with elevated CIWA, has a seizure history, was arrested and tried to hang himself at the police station. Patient is evasive and uninterested in giving me any history. He denies any complaints. Given Ativan in ED. 1. Alcohol withdrawal delirium 2. Suicide attempt by hanging Plan - Admit to general medicine - Ativan PRN CIWA - Ativan 2mg q6h - IV hydration - Psychiatry and social work when less delirious - DVT PPx
[2017-10-23 05:22] VITALS: BP 100/68
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
--- NOTE | 2017-10-23 12:50 | PN- Att Addend ---
Attending Addendum Attending Brief Note Pt seen and examined. Appreciate psychiatry consultation. Patient feels okay on the standing Ativan. On exam blood pressures 100/68, pulse is 73, breathing at 16-18 and afebrile. He has no stigmata of liver disease on examination. Lungs are clear to auscultation, heart is S1-S2 regular, abdomen is soft nontender. 47-year-old male polysubstance abuse including alcohol, cocaine was brought in after suicidal attempt while incarcerated. We are treating him for acute alcohol withdrawal with Ativan myplde-big-lokuv and Ativan per CIWA with thiamine, folate and multivitamins. Appreciate psychiatry evaluation who feel that patient is not an imminent danger to himself or others and we can safely discontinue the monitor and arrange for IOP follow-up on discharge.
[2017-10-23 15:43] VITALS: BP 136/88
[2017-10-23 21:38] VITALS: BP 118/80
[2017-10-24 06:54] VITALS: BP 118/88
[2017-10-24 08:18] LABS: ABSOLUTE BASOPHIL COUNT 0.1 /CUMM (0.0-0.2); ABSOLUTE EOSINOPHIL COUNT 0.4 /CUMM (0.0-0.7); ABSOLUTE GRANULOCYTE CT 5.3 /CUMM (1.4-6.5); ABSOLUTE LYMPH COUNT 1.3 /CUMM (1.2-3.4); ABSOLUTE MONOCYTE COUNT 0.9 /CUMM (0.10-0.60); BASOPHIL % 0.9 % (0.0-2.0); EOSINOPHIL % 5.5 % (0-5); GRANULOCYTE % 65.7 % (42.2-75.2); HEMATOCRIT 41.5 % (42-52); MEAN CORPUSCULAR HGB 32.1 PG (27.0-31.0); MEAN CORPUSCULAR HGB CONC 33.4 G/DL (33.0-37.0); MEAN CORPUSCULAR VOLUME 96.2 FL (80.0-94.0); MEAN PLATELET VOLUME 8.1 FL (7.4-10.4); PLATELET COUNT 450 /CUMM (130-400); RBC DISTRIBUTION WIDTH 15.6 % (11.5-14.5); RED BLOOD CELL CT 4.31 /CUMM (4.70-6.10); WHITE BLOOD CELL COUNT 8.1 /CUMM (4.8-10.8)
--- NOTE | 2017-10-24 08:38 | PN- Housestaff ---
Opal Samayoa 10/24/17 0838: Subjective Follow-up For: Alcohol detox Subjective: CIWA 0-2. Patient offers no complaints. Denies SI/HI, nausea, vomiting, abdominal pain, urinary or bowel symptoms Review of Systems Constitutional: Reports: see HPI. Objective Last 24 Hrs of Vital Signs/I&O Vital Signs Date Time Temp Pulse Resp B/P B/P Pulse O2 O2 Flow FiO2 Mean Ox Delivery Rate 10/24 0654 98.5 76 20 118/88 100 / 2138 97.9 91 18 118/80 100 Room Air 10/23 1543 97.9 81 20 136/88 98 Room Air Intake & Output 10/24 1600 10/24 0800 10/24 0000 Intake Total 1480 Output Total Balance 1480 Intake, IV 1000 Intake, Oral 480 Physical Exam General Appearance: Alert, Oriented X3, Cooperative, No Acute Distress Cardiovascular: Regular Rate, Normal S1, Normal S2 Lungs: Clear to Auscultation, Normal Air Movement Abdomen: Normal Bowel Sounds, Soft, No Tenderness Current Medications: Current Medications Sig/Trinity Start time Last Medication Dose Route Stop Time Status Admin Cyanocobalamin/ 1 BAG DAILY@1800 10/22 1800 DC 10/23 Thiamine/Pyridoxine IV 1835 Dextrose/Water 1,000 ML Ibuprofen 600 MG 4 TIMES/DAY PRN 10/22 1130 AC 10/22 PO 1136 Lorazepam 2 MG Q8 10/24 1400 AC PO Lorazepam 2 MG Q6 10/22 1800 DC 10/24 PO 1151 Lorazepam 0 Q1P PRN 10/22 1700 AC IV Multivitamins 1 TAB DAILY 10/23 09 AC 10/24 PO 0801 Nicotine 21 MG DAILY 10/23 09 AC 10/24 TOP 0024 Omeprazole 40 MG DAILY 10/23 0700 AC 10/24 PO 0553 Ondansetron HCl 4 MG Q4-6 PRN PRN 10/22 0130 AC PO Thiamine HCl 100 MG DAILY 10/23 09 AC 10/24 PO 0801 Last 24 Hrs of Lab/Saul Results Last 24 Hrs of Labs/Mics: Laboratory Tests 10/24/17 0708: CBC w Diff NO MAN DIFF REQ, RBC 4.31 L, MCV 96.2 H, MCH 32.1 H, MCHC 33.4, RDW 15.6 H, MPV 8.1, Gran % 65.7, Lymphocytes % 16.5 L, Monocytes % 11.4 H, Eosinophils % 5.5 H, Basophils % 0.9, Absolute Granulocytes 5.3, Absolute Lymphocytes 1.3, Absolute Monocytes 0.9 H, Absolute Eosinophils 0.4, Absolute Basophils 0.1 Assessment/Plan Assessment: 47-year-old man currently active smoker with history of polysubstance abuse, alcohol dependence, withdrawal seizures, pancreatitis, status post multiple detoxes in the past (most recently Feb 2017), Hep C, COPD, anxiety/depression patient came for EtOH detox. #Alcohol detox Plan: Continue Ativan per CIWA protocol Continue taper with Scheduled Ativan at 2 mg every 8 We will discontinue banana bag and start oral MVI, thiamine, folate supplement Continue Nicotine patch, omeprazole Pain: Ibuprofen Appreciate Psych recommendations Problem List: 1. ALCOHOL WITHDRAWAL Pain Ratin Pain Location: NA Pain Goal: Remain pain free Pain Plan: NA Tomorrow's Labs & Rationales: none Iva AUGUSTIN,Netta 10/24/17 1156: Attending MD Review Statement Attending Statement Attending MD Statement: examined this patient, discuss w/resident/PA/MANAGEMENT PROFESSIONAL, agreed w/resident/PA/MANAGEMENT PROFESSIONAL, reviewed EMR data (avail), discussed with nursing, reviewed images Attending Assessment/Plan: Overall patient appears to be doing okay. His CIWA scores have been stable. At this point I'll decrease the Ativan from 2 mg every 6 to 2 mg every 8. He's taking everything orally so we'll stop the banana bag IV and continue the vitamin by mouth. He needs psych follow-up for outpatient IOP on discharge.
[2017-10-24 14:52] VITALS: BP 124/90
[2017-10-24 21:43] VITALS: BP 106/65
[2017-10-25 06:19] VITALS: BP 108/76
--- NOTE | 2017-10-25 07:15 | PN- Housestaff ---
[place] AUGUSTIN,Jessica 10/25/17 0715: Subjective Follow-up For: Alcohol detox Polysubstance abuse Subjective: Patient seen and examined at bedside. No overnight events. Patient denies nausea, vomiting, palpitation, chest pain, tremors. Patient denies suicidal ideation. Review of Systems Constitutional: Reports: no symptoms, see HPI. Objective Last 24 Hrs of Vital Signs/I&O Vital Signs Date Time Temp Pulse Resp B/P B/P Pulse O2 O2 Flow FiO2 Mean Ox Delivery Rate 10/25 618 97.9 72 20 108/76 98 10/24 2143 97.5 77 16 106/65 96 Room Air 10/24 1452 98.3 71 20 124/90 99 Room Air Intake & Output 10/25 1600 10/25 0800 10/25 0000 Intake Total 240 240 Output Total Balance 240 240 Intake, Oral 240 240 Physical Exam General Appearance: Alert, Oriented X3, Cooperative, No Acute Distress Skin: No Breakdown Cardiovascular: Regular Rate, Normal S1, Normal S2, No Murmurs Lungs: Normal Air Movement Abdomen: Soft, No Tenderness, No Hepatospenomegaly Neurological: Normal Speech, Strength at 5/5 X4 Ext, Normal Tone, Sensation Intact Extremities: No Cyanosis, No Edema, Normal Pulses Current Medications: Current Medications Sig/Trinity Start time Last Medication Dose Route Stop Time Status Admin Cyanocobalamin/ 1 BAG DAILY@1800 10/22 1800 DC 10/23 Thiamine/Pyridoxine IV 1835 Dextrose/Water 1,000 ML Folic Acid 1 MG DAILY 10/24 1338 AC 10/25 PO 0842 Ibuprofen 600 MG 4 TIMES/DAY PRN 10/22 1130 AC 10/22 PO 1136 Lorazepam 1.5 MG Q8 10/25 1400 AC PO Lorazepam 2 MG Q8 10/24 1400 DC 10/25 PO 0601 Lorazepam 2 MG Q6 10/22 1800 DC 10/24 PO 1151 Lorazepam 0 Q1P PRN 10/22 1700 AC IV Multivitamins 1 TAB DAILY 10/23 09 AC 10/25 PO 0842 Nicotine 21 MG DAILY 10/23 0900 AC 10/25 TOP 0842 Omeprazole 40 MG DAILY AC 10/23 0700 AC 10/25 PO 0623 Ondansetron HCl 4 MG Q4-6 PRN PRN 10/22 0130 AC PO Thiamine HCl 100 MG DAILY 10/23 0900 AC 10/25 PO 0842 Assessment/Plan Assessment: 47-year-old man currently active smoker with history of polysubstance abuse, alcohol dependence, withdrawal seizures, pancreatitis, status post multiple detoxes in the past (most recently Feb 2017), Hep C, COPD, anxiety/depression patient came for EtOH detox. Assessment and plan Polysubstance abuse Alcohol detox Plan: Continue Ativan per CIWA protocol Continue taper with Scheduled Ativan at 1.5mg every 8. We will continue tapering his Ativan. Continue MVI, thiamine, folate supplement Continue Nicotine patch, omeprazole Pain: Ibuprofen Appreciate Psych/social work manager recommendations Problem List: 1. ALCOHOL WITHDRAWAL Pain Ratin Pain Location: none Pain Goal: Remain pain free Pain Plan: tylenol Tomorrow's Labs & Rationales: cbc,bep Jean-Pierre AUGUSTIN,Thea 10/25/17 1252: Attending MD Review Statement Attending Statement Attending MD Statement: examined this patient, discuss w/resident/PA/CLAIMS MANAGER, agreed w/resident/PA/CLAIMS MANAGER, reviewed EMR data (avail), discussed with nursing, discussed with case mgmt, amended to note Attending Assessment/Plan: Patient seen and examined, overall doing better. CIWA scores are improving. Vital signs are stable. This is a 47-year-old male who was admitted with acute alcohol intoxication needing detox. We'll continue to taper his Ativan. Social work to see the patient. Continue when necessary Ativan and CIWA protocol. DVT px; ALPS.
[2017-10-25 08:00] VITALS: BP 108/76
[2017-10-25 15:26] VITALS: BP 100/60
[2017-10-25 22:39] VITALS: BP 114/7
[2017-10-26] VITALS: BP 114/70
[2017-10-26 01:08] VITALS: BP 110/66
[2017-10-26 02:00] VITALS: BP 110/66
--- NOTE | 2017-10-26 07:16 | PN- Housestaff ---
Chanel AUGUSTIN,[facility] 10/26/17 0716: Subjective Follow-up For: Alcohol detox Polysubstance abuse Subjective: Patient examined at bedside. Says he feels somewhat depressed regarding his discharge disposition and has been working with Zeina(psychiatric social worker) to figure things out. Denies any headaches, nausea/vomiting, abdominal or chest pain, tremors, hallucinations or SI/HI. Review of Systems Constitutional: Reports: no symptoms, see HPI, chills, diaphoresis, fever, malaise, weakness, unexplained weight loss. EENTM: Reports: no symptoms. Cardiovascular: Reports: no symptoms. Respiratory: Reports: no symptoms. Gastrointestinal: Reports: no symptoms. Genitourinary: Reports: no symptoms. Musculoskeletal: Reports: no symptoms. Skin: Reports: no symptoms. Neurological/Psychological: Reports: no symptoms. Hematologic/Endocrine: Reports: no symptoms. Immunologic/Allergic: Reports: no symptoms. Objective Last 24 Hrs of Vital Signs/I&O Vital Signs Date Time Temp Pulse Resp B/P B/P Pulse O2 O2 Flow FiO2 Mean Ox Delivery Rate 10/26 0718 98.5 67 20 132/88 97 Room Air 06/05 0200 97.9 81 20 110/66 06/05 0108 97.9 81 20 110/66 99 Room Air 06/05 0000 98.0 65 20 114/70 06/04 2239 98.0 65 20 114/7 87 Room Air 06/04 1526 97.8 91 20 100/60 97 Room Air Intake & Output / 1600 06/05 0800 06/05 0000 Intake Total 480 Output Total Balance 480 Intake, Oral 480 Number 0 Bowel Movements Physical Exam General Appearance: Alert, Oriented X3, Cooperative, No Acute Distress Skin: No Rashes, No Breakdown Cardiovascular: Regular Rate, Normal S1, Normal S2 Lungs: Clear to Auscultation, Normal Air Movement Abdomen: Normal Bowel Sounds, Soft, No Tenderness Extremities: No Clubbing, No Cyanosis, No Edema, Mild upper extremity tremors Current Medications: Current Medications Sig/Trinity Start time Last Medication Dose Route Stop Time Status Admin Folic Acid 1 MG DAILY 10/24 1338 AC 10/26 PO 0757 Ibuprofen 600 MG 4 TIMES/DAY PRN 10/22 1130 AC 10/26 PO 0327 Lorazepam 1 MG Q8 10/26 1400 AC PO Lorazepam 1.5 MG Q8 10/25 1400 DC 10/26 PO 0555 Lorazepam 0 Q1P PRN 10/22 1700 AC IV Multivitamins 1 TAB DAILY 10/23 0900 AC 10/26 PO 0756 Nicotine 21 MG DAILY 10/23 0900 AC 10/26 TOP 0559 Omeprazole 40 MG DAILY AC 10/23 0700 AC 10/26 PO 0555 Ondansetron HCl 4 MG Q4-6 PRN PRN 10/22 0130 AC PO Thiamine HCl 100 MG DAILY 10/23 0900 AC 10/26 PO 0756 Assessment/Plan Assessment: 47-year-old man currently active smoker with history of polysubstance abuse, alcohol dependence, withdrawal seizures, pancreatitis, status post multiple detoxes in the past (most recently Feb 2017), Hep C, COPD, anxiety/depression patient came for EtOH detox. Assessment and plan Polysubstance abuse Alcohol detox Plan: Continue Ativan per CIWA protocol Continue taper with Scheduled Ativan to 1mg every 8. Continue MVI, thiamine, folate supplement Continue Nicotine patch, omeprazole Pain: Ibuprofen Appreciate Psych/psychiatric social worker recommendations Problem List: 1. Alcohol withdrawal Pain Ratin Pain Location: None Pain Goal: Remain pain free Pain Plan: Pain Pathway Tomorrow's Labs & Rationales: None Jean-Pierre AUGUSTIN,Thea 10/26/17 1255: Attending MD Review Statement Attending Statement Attending MD Statement: examined this patient, discuss w/resident/PA/SOLUTIONS MARKET CONSULTANT, agreed w/resident/PA/SOLUTIONS MARKET CONSULTANT, reviewed EMR data (avail), discussed with nursing, discussed with case mgmt, reviewed images, amended to note Attending Assessment/Plan: Patient seen and examined, Netta scores are running low. Overall patient is doing okay. Vital signs are stable. Patient currently on scheduled and when necessary Ativan. Agree with further tapering of his Ativan. Patient is more worried about his post discharge plan. He claims that he does not have a place to live and is looking to see if he [facility]. Patient advised to talk to the psychiatric social worker. At this time we' ll continue to taper his Ativan gradually on everyday basis. Continue when necessary Ativan and CIWA protocol. Please add pharmacologic DVT prophylaxis.
[2017-10-26 07:18] VITALS: BP 132/88
[2017-10-26 14:29] VITALS: BP 118/74
[2017-10-26 20:34] VITALS: BP 110/70
[2017-10-27 06:30] VITALS: BP 104/70
--- NOTE | 2017-10-27 07:12 | PN- Housestaff ---
Subjective Follow-up For: Alcohol detox Subjective: Patient seen and examined. States he feels depressed about being discharged as he does not have a place to go. Slept well overnight. Does not offer any complaints. Review of Systems Constitutional: Reports: no symptoms. Objective Last 24 Hrs of Vital Signs/I&O Vital Signs Date Time Temp Pulse Resp B/P B/P Pulse O2 O2 Flow FiO2 Mean Ox Delivery Rate 10/27 629 97.7 78 20 104/70 97 Room Air 10/26 2034 97.7 74 18 110/70 98 Room Air 10/26 1429 98.5 85 18 118/74 97 Room Air Intake & Output 10/27 1600 10/27 0800 10/27 0000 Intake Total 600 900 Output Total 500 Balance 100 900 Intake, Oral 600 900 Number 0 Bowel Movements Output, Urine 500 Physical Exam General Appearance: Alert, Oriented X3, Cooperative, No Acute Distress Skin: No Rashes, No Breakdown Skin Temp/Moisture Exam: Warm/Dry Sepsis Skin Exam (color): Normal for Ethnicity HEENT: Atraumatic Cardiovascular: Normal S1, Normal S2, No Murmurs Lungs: Clear to Auscultation, Normal Air Movement Abdomen: Soft, No Tenderness Neurological: Normal Speech Extremities: No Edema Assessment/Plan Assessment: 47-year-old man currently active smoker with history of polysubstance abuse, alcohol dependence, withdrawal seizures, pancreatitis, status post multiple detoxes in the past (most recently Feb 2017), Hep C, COPD, anxiety/depression presented to the ED for alcohol detox. Assessment: 1. Alcohol Detox 2. History of Polysubstance Abuse Plan: * taper down ativan to 0.5mg q8 today. His CIWA scores have been 0 over the past 48 hours. * he can likely be discharged tomorrow after his last dose of Ativan and if his living situation is sorted out. * Continue MVI, thiamine, folate supplement * Continue Nicotine patch * Appreciate Psych/director of social services recommendations * Diet: Regular * DVT Prophylaxis: SC Lovenox * Code: Full Code Problem List: 1. ALCOHOL WITHDRAWAL Pain Ratin Pain Location: none Pain Goal: Remain pain free Pain Plan: none Tomorrow's Labs & Rationales: CBC, BEP
--- NOTE | 2017-10-27 11:43 | PN- Att Addend ---
Attending Addendum Attending Brief Note Patient seen and examined, says that he's feeling kind of depressed and scared secondary to the fact that he has no place to go. assembly worker was also present during the rounds to help him find a senior living. From medical standpoint he's doing well. His vital signs are stable. He is awake and alert oriented 3 not in acute distress. Cardio vascular exam shows S1, S2, regular rate and rhythm. his chest is clear to auscultation. His abdomen is soft and bowel sounds are positive. CIWA scores are running low. At this point we'll continue to taper his Ativan. His last dose of Ativan to be tomorrow. After that he can be discharged. Social work to help him find a senior living as well as to help with outpatient alcohol rehabilitation plan. Continue current treatment.
[2017-10-27 14:15] VITALS: BP 130/72
--- NOTE | 2017-10-27 15:01 | Patient Discharge Instructions ---
Discharge Instructions General Discharge Information You were seen/treated for: Alcohol withdrawl You had these procedures: detox Watch for these problems: 1. seizure 2. fever 3. nausea or vomiting 4. chest pain Special Instructions: 1. Please follow up with IOP 2. Please follow up with PCP 3. Please take your meds as recommended Diet Continue normal diet: Yes Activity Full Activity/No Limits: Yes Acute Coronary Syndrome Inclusion Criteria At DC or during hospital stay patient has or had the following: ACS DIAGNOSIS No Discharge Core Measures Meds if any: Prescribed or Continued at Discharge Meds if any: NOT Prescribed or Continued at Discharge Congestive Heart Failure Inclusion Criteria At DC or during hospital stay patient has or had the following: CHF DIAGNOSIS No Discharge Core Measures Meds if any: Prescribed or Continued at Discharge Meds if any: NOT Prescribed or Continued at Discharge Cerebrovascular accident Inclusion Criteria At DC or during hospital stay patient has or had the following: CVA/TIA Diagnosis No Discharge Core Measures Meds if any: Prescribed or Continued at Discharge Meds if any: NOT Prescribed or Continued at Discharge Venous thromboembolism Inclusion Criteria VTE Diagnosis No VTE Type NONE VTE Confirmed by (Test) NONE Discharge Core Measures - Per Current guidelines, there needs to be overlap - treatment for the first 5 days of Warfarin therapy. - If discharged on Warfarin prior to 5 days of - overlap therapy, the patient will need to be - assessed for post discharge needs including - *Post discharge parental anticoagulation - *Warfarin and/or parental anticoagulation education - *Follow up date to check INR post discharge At least 5 days overlap therapy as Inpatient No Meds if any: Prescribed or Continued at Discharge Note: Overlap Therapy is Warfarin and Anticoagulant Meds if any: NOT Prescribed or Continued at Discharge
[2017-10-27 21:37] VITALS: BP 110/80
[2017-10-28 06:40] VITALS: BP 110/72
--- NOTE | 2017-10-28 07:14 | PN- Housestaff ---
Moe AUGUSTIN,[facility] 10/28/17 0714: Subjective Follow-up For: Alcohol Detox Subjective: Patient seen and examined at bedside. Reports doing well. Offers no complaints today. Review of Systems Constitutional: Reports: no symptoms. Objective Last 24 Hrs of Vital Signs/I&O Vital Signs Date Time Temp Pulse Resp B/P B/P Pulse O2 O2 Flow FiO2 Mean Ox Delivery Rate 10/28 0640 97.7 76 20 110/72 98 Room Air 10/27 2137 98.5 69 18 110/80 98 Room Air 10/27 1415 98.3 78 18 130/72 98 Intake & Output 10/28 1600 10/28 0800 10/28 0000 Intake Total 480 600 Output Total Balance 480 600 Intake, Oral 480 600 Physical Exam General Appearance: Alert, Oriented X3, Cooperative, No Acute Distress Skin: No Rashes, No Breakdown Skin Temp/Moisture Exam: Warm/Dry Sepsis Skin Exam (color): Normal for Ethnicity HEENT: Atraumatic Cardiovascular: Normal S1, Normal S2, No Murmurs Lungs: Clear to Auscultation, Normal Air Movement Abdomen: Soft, No Tenderness Neurological: Normal Speech Extremities: No Edema Last 24 Hrs of Lab/Saul Results Last 24 Hrs of Labs/Mics: Laboratory Tests 10/28/17 0700: Anion Gap 12, Estimated GFR > 60, BUN/Creatinine Ratio 14.4, CBC w Diff NO MAN DIFF REQ, RBC 4.35 L, MCV 96.8 H, MCH 32.1 H, MCHC 33.2, RDW 15.5 H, MPV 8.2 , Gran % 57.3, Lymphocytes % 24.9, Monocytes % 11.7 H, Eosinophils % 4.8, Basophils % 1.3, Absolute Granulocytes 4.4, Absolute Lymphocytes 1.9, Absolute Monocytes 0.9 H, Absolute Eosinophils 0.4, Absolute Basophils 0.1 Assessment/Plan Assessment: 47-year-old man currently active smoker with history of polysubstance abuse, alcohol dependence, withdrawal seizures, pancreatitis, status post multiple detoxes in the past (most recently Feb 2017), Hep C, COPD, anxiety/depression presented to the ED for alcohol detox. Assessment: 1. Alcohol Detox 2. History of Polysubstance Abuse Plan: * Discontinue Ativan * Continue MVI, thiamine, folate supplement * Continue Nicotine patch * Stable for discharge. * Diet: Regular * DVT Prophylaxis: SC Lovenox * Code: Full Code Problem List: 1. ALCOHOL WITHDRAWAL Pain Ratin Pain Location: none Pain Goal: Remain pain free Pain Plan: none Tomorrow's Labs & Rationales: none Thea Morejon MD 10/28/17 1111: Attending MD Review Statement Attending Statement Attending MD Statement: examined this patient, discuss w/resident/PA/LASER SPECIALIST, agreed w/resident/PA/LASER SPECIALIST, reviewed EMR data (avail), discussed with nursing, discussed with case mgmt, reviewed images, amended to note Attending Assessment/Plan: Patient seen and examined, overall feeling well. If you have scores are running 0. Vital signs are stable. Patient received his last dose of Ativan today and he is medically stable for discharge. Patient will follow-up with [facility] as an outpatient. He worked with social service agency director who helped him finding an intake [place] [facility]. Patient will be continued on his home medications and is requesting refill on his trazodone which be given. Patient should follow-up with his primary care doctor as an outpatient now that he has insurance.
[2017-10-28 08:03] LABS: ABSOLUTE BASOPHIL COUNT 0.1 /CUMM (0.0-0.2); ABSOLUTE EOSINOPHIL COUNT 0.4 /CUMM (0.0-0.7); ABSOLUTE GRANULOCYTE CT 4.4 /CUMM (1.4-6.5); ABSOLUTE LYMPH COUNT 1.9 /CUMM (1.2-3.4); ABSOLUTE MONOCYTE COUNT 0.9 /CUMM (0.10-0.60); BASOPHIL % 1.3 % (0.0-2.0); EOSINOPHIL % 4.8 % (0-5); GRANULOCYTE % 57.3 % (42.2-75.2); HEMATOCRIT 42.1 % (42-52); MEAN CORPUSCULAR HGB 32.1 PG (27.0-31.0); MEAN CORPUSCULAR HGB CONC 33.2 G/DL (33.0-37.0); MEAN CORPUSCULAR VOLUME 96.8 FL (80.0-94.0); MEAN PLATELET VOLUME 8.2 FL (7.4-10.4); PLATELET COUNT 427 /CUMM (130-400); RBC DISTRIBUTION WIDTH 15.5 % (11.5-14.5); RED BLOOD CELL CT 4.35 /CUMM (4.70-6.10); WHITE BLOOD CELL COUNT 7.6 /CUMM (4.8-10.8)
[2017-10-28] MEDS ORDERED: FOLIC ACID0.4 M1 PO (09:32)
[2017-10-28] MEDS ORDERED: TRAZODONE HCL150 M1 PO (09:37)
--- NOTE | 2017-10-28 11:52 | Discharge Summary ---
Visit Information Visit Dates Admission Date: 10/22/17 Discharge Date: 10/28/17 Hospital Course Course Attending Physician: Thea Morejon MD Primary Care Physician: Michelle Morris Hospital Course: Mr Adame is a 47-year-old man currently active smoker with history of polysubstance use, alcohol dependence, withdrawal seizures, pancreatitis, status post multiple detoxes in the past, Hep C, COPD, anxiety and depression who presented to the ED for alcohol detox. He was seen and treated for: Alcohol Detox: Patient was admitted to the general medicine floor and started on PO Ativan and Ativan per [facility] protocol along with folate, thiamine and multivitamins. Patient responded well to treatment. With improvement in his symptoms his Ativan was gradually tapered down. The patient stated that he had some difficulty with his living situation for which social welfare administrator was consulted and he was helped out with the process. On discharge patient was set up with an appointment at [facility]. He was recommended to follow up with his PCP after discharge and attend his IOP. He was discharged in stable disposition. Allergies: Coded Allergies: No Known Allergies (01/06/17) Disposition Summary Disposition Principal Diagnosis: Alcohol Detox Additional Diagnosis: history of polysubstance use withdrawal seizures pancreatitis Discharge Disposition: home or self care Discharge Instructions General Discharge Information Code Status: Full Code Patient's Diet: Regular Patient's Activity: As tolerated Follow-Up Instructions/Appts: 1. Please follow up with IOP 2. Please follow up with PCP Medications at Discharge Discharge Medications: Continue taking these medications: Esomeprazole Magnesium (Nexium) 20 MG CAPSULE. 1 Capsule ORAL DAILY Comments: OMEPROZOLE GIVEN IN HOSPITAL 10/28/17 @ 5:22 AM Multivitamin (One Daily Multivitamin) 1 EACH TABLET 1 Tablet ORAL DAILY Qty = 30 Instructions: . Comments: Last Taken:10/28/17 Time:08:42 AM Start taking the following new medications: Folic Acid (Folic Acid) 0.4 MG TABLET 1 Tablet ORAL DAILY Qty = 30 No Refills Comments: Last Taken:10/28/17 Time:8:42 AM Trazodone HCl (Trazodone HCl) 150 MG TABLET 1 Tablet ORAL Every night as needed for INSOMNIA Qty = 14 No Refills Comments: Last Taken:10/27/17 Time:10:28 PM Copies To: Michelle Morris
== END 2017-10-28 11:30 | DRG 772 ==
LOC: ERH 15:17 → 2NB 10-22 14:29 → ERHI 10-22 14:29 → ENRESERV 10-22 17:59 → ENTRNSPT 10-22 20:37 → 2NB 10-22 20:53 → CMPTRNSPT 10-22 21:03 → 2NB 10-25 08:14 → ENPENDDIS 10-28 09:41 → 2NB 10-28 11:30
PROVIDERS: Emergency Medicine; Internal Medicine
PROC: HZ99ZZZ Pharmacotherapy for Substance Abuse Treatment, Other Replacement Medication (ICD-10-PCS; principal; 2017-10-22)
PROC: HZ2ZZZZ Detoxification Services for Substance Abuse Treatment (ICD-10-PCS; principal; 2017-10-22)
DX: F10.239 Alcohol dependence with withdrawal, unspecified (principal); Y90.8 Blood alcohol level of 240 mg/100 ml or more; T14.91XA Suicide attempt, initial encounter; X83.8XXA Intentional self-harm by other specified means, initial encounter; B18.2 Chronic viral hepatitis C; F19.14 Other psychoactive substance abuse with psychoactive substance-induced mood disorder; F14.19 Cocaine abuse with unspecified cocaine-induced disorder; K21.9 Gastro-esophageal reflux disease without esophagitis; K22.6 Gastro-esophageal laceration-hemorrhage syndrome; J45.909 Unspecified asthma, uncomplicated; M54.9 Dorsalgia, unspecified; F17.210 Nicotine dependence, cigarettes, uncomplicated; Y92.143 Cell of prison as the place of occurrence of the external cause
CPT/HCPCS: 2NBP; 36415; 80307; 82436; G0480; J1650; J3101; J3490; J7060

== ENCOUNTER 2017-12-29 06:17 | Emergency (ER) | payer SELFPAY ==
[~2017-12-29 06:17] MED LIST changes: +FOLIC ACID0.4 M1 PO
--- NOTE | 2017-12-29 07:07 | RADIOLOGY REPORT ---
EXAMINATION: XR CHEST CLINICAL INFORMATION: Shortness of breath. Cough. History of asthma. COMPARISON: 08/11/2017 TECHNIQUE: 2 views of the chest were obtained. FINDINGS: The lungs are hyperexpanded with flattening of the diaphragm. No consolidation, edema, or effusion. No pneumothorax. The cardiomediastinal silhouette is within normal limits. No acute osseous abnormality. Degenerative changes of the spine. Chronic healed right lateral/posterior rib fractures. IMPRESSION: Hyperexpanded lungs with no acute consolidation.
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
[2017-12-29 08:32] VITALS: BP 153/77
[2017-12-29] MEDS ORDERED: DELTASONE20 MG PO (09:41)
[2017-12-29] MEDS ORDERED: PROVENTIL HFA6.7 GM INH (09:41)
[2017-12-29] MEDS ORDERED: VIBRAMYCIN100 MG PO (09:41)
[2017-12-29] MEDS ORDERED: ALBUTEROL S5 MG/1 ML PO (09:41)
== END 2017-12-29 09:39 ==
LOC: ERH 06:17
DX: J45.909 Unspecified asthma, uncomplicated (principal); F17.210 Nicotine dependence, cigarettes, uncomplicated
CPT/HCPCS: 1263; 71046